=== PATIENT | female | born 1935 | race Caucasian/White ===

== ENCOUNTER 2021-09-25 11:05 | Inpatient (IN) | payer MEDICARE, MEDICAID, SELFPAY ==
[2021-09-25] VITALS (18 sets, daily range): BP systolic 80–153; BP diastolic 36–107; PULSE 89–112; RESP 14–18; TEMP 36.6–36.8; O2SAT 92–99
--- NOTE | ~2021-09-25 | XR_ITS ---
XR hip RT 2V w AP pelvis DATE: 09/25/2021 12:30 INDICATION: Injury TECHNIQUE: AP pelvis. AP and cross table lateral views of right hip COMPARISON: None FINDINGS: There is a comminuted intertrochanteric right hip fracture with prominent varus deformity. There is bilateral hip osteoarthritis. The pubic symphysis and sacroiliac joints are intact. IMPRESSION: Comminuted right intertrochanteric hip fracture Reviewed, dictated and finalized at location A. ET SPECIALIST
--- NOTE | ~2021-09-25 | XR_ITS ---
EXAMINATION: XR chest 1V portable DATE: 09/25/2021 15:04 INDICATION: Leukocytosis. Preop. TECHNIQUE: A single frontal view of the chest was obtained. COMPARISON: None. FINDINGS: The patient is rotated to her left. The chest demonstrates clear lungs without pneumonia, p leural effusion, or pneumothorax. The heart size is normal. A coronary stent is noted. Partially visu alized is a right elbow joint replacement. IMPRESSION: 1. No acute cardiopulmonary disease. Reviewed, dictated and finalized at location A. TIC PLANT WORKER
--- NOTE | ~2021-09-25 | US_ITS ---
EXAMINATION: US carotid duplex BI DATE: 09/26/2021 11:15 INDICATION: Carotid bruits. TECHNIQUE: Grayscale, color Doppler, and pulsed Doppler images of the cervical carotid arteries were obtained. The degree of vessel stenosis is placed in one of the following categories: normal, <50%, 5 0-69%, >=70% but less than near-occlusion, near-occlusion, or total occlusion. Note that percent sten osis relative to normal distal artery lumen diameter is indirectly measured from velocity measurement s as described by Gee, et al. Radiology 2003; 229:340-346. COMPARISON: None. FINDINGS: RIGHT: The right common carotid artery (CCA) peak systolic velocity (PSV) is 112 cm/s. The right internal ca rotid artery (ICA) PSV is 127 cm/s. The right ICA end-diastolic velocity (EDV) is 41 cm/s. The right ICA/CCA PSV ratio is 1.1. Grayscale and color Doppler images yield an estimate of <50% diameter reduc tion from plaque in the ICA. There is antegrade flow in the right vertebral artery. LEFT: The left CCA PSV is 167 cm/s. The left ICA PSV is 113 cm/s. The left ICA EDV is 31 cm/s. The left ICA /CCA PSV ratio is 0.7. Grayscale and color Doppler images yield an estimate of <50% diameter reductio n from plaque in the ICA. There is antegrade flow in the left vertebral artery. IMPRESSION: 1. <50% stenosis in the right internal carotid artery. 2. <50% stenosis in the left internal carotid artery. Reviewed, dictated and finalized at location A. RAL CAR YARD SUPERVISOR
--- NOTE | ~2021-09-25 | CT_ITS ---
EXAMINATION: CT brain wo con EXAM DATE: 09/25/2021 16:23 INDICATION: Fall, dementia. TECHNIQUE: Spiral CT of the head was performed without contrast. Axial, coronal and sagittal images were reviewed. The dose-length product (DLP) for this examination was 605.33 mGy-cm. The exposure w as tailored according to patient size, and iterative reconstruction (ASIR) was used as additional dos e reduction technique. There is no prior study for comparison. FINDINGS: Study is limited due to patient motion. There is no acute intraparenchymal hemorrhage. No evidence of intraparenchymal brain mass lesion. No evidence of acute infarction. Please note that i nitial head CT has limited sensitivity for small or acute infarctions. There is mild periventricular and subcortical hypodensity, nonspecific but probably related to small vessel ischemic disease. The re is mild prominence of the sulci and ventricles related to cerebral atrophy. There is intracrania l carotid arteriosclerosis. There are no extra-axial collections. There is no mass effect or midlin e shift. Patient has had bilateral ocular lens surgery. There is distortion to the normal spherical shape of t he right globe, likely chronic. The retina along the distorted right posterolateral aspect appears sl ightly more dense, but no masslike appearance. Recommend correlation with ophthalmological exam. Soft tissue is unremarkable. The visualized sinuses and mastoid air cells are well aerated. IMPRESSION: 1. No acute intracranial findings. 2. Chronic age related findings. 3. Flattening right globe posterior lateral aspect with mildly dense retina, no masslike thickening; Recommend correlation with ophthalmological exam. Reviewed, dictated and finalized at location B. ENT CARRIER IMPRESSION: 1. No acute intracranial findings. 2. Chronic age related findings. 3. Flattening right globe posterior lateral aspect with mildly dense retina, n o masslike thickening; Recommend correlation with ophthalmological exam.
--- NOTE | ~2021-09-25 | XR_ITS ---
EXAMINATION: XR surgery orthopedic DATE: 09/26/2021 17:17 INDICATION: Intertrochanteric nailing of a right hip fracture. TECHNIQUE: 7 fluoroscopic images of the right hip were obtained during procedure performed by Dr. Haley khan. Radiologist was not present for the imaging or procedure. The amount of fluoroscopy time used d uring this procedure was 3.0 minutes. COMPARISON: 09/25/2021 FINDINGS: Continuing Education Specialist image demonstrates a comminuted intratrochanteric fracture of the proximal right femur with gorge roximately 3 cm posterior displacement of the main distal fragment relative to the femoral head and n elsi fragment. Subsequent images demonstrate reduction and internal fixation of the fracture with an a ntegrade intramedullary maximilian, femoral neck dynamic compression screw and distal interlocking screw fix ation. Alignment post fixation appears near-anatomic aside from a couple centimeter persistent supero medial retraction of the lesser trochanteric fragment which remains unfixed. Mild right hip osteoarth ritis. IMPRESSION: 1. Near-anatomic alignment post reduction and internal fixation of a comminuted intratrochanteric fra cture of the proximal right femur. See procedure note for further detail. Reviewed, dictated and finalized at location A. AL MEDIA MANAGER IMPRESSION: 1. Near-anatomic alignment post reduction and internal fixation of a comminuted intratrochanteric fracture of the proximal right femur. See procedure note for further detail.
--- NOTE | ~2021-09-25 | CT_ITS ---
EXAMINATION: CT brain wo con DATE: 09/28/2021 14:00 INDICATION: Headache. Recent fall. TECHNIQUE: Computed tomography (CT) of the head was performed without intravenous contrast. The mA wa s adjusted according to patient size. Iterative reconstruction technique was employed. The dose-lengt h product was 529.67 mGy-cm. COMPARISON: Head CT 09/25/2021 FINDINGS: There are scattered areas of low attenuation in the cerebral white matter, which is within normal limits for the patient's age. There is no intracranial hemorrhage, acute infarction, or abnor mal intracranial mass lesion. The ventricles are normal in size. There is mild mucosal thickening in the ethmoid sinuses. There are likely changes of ocular lens replacement surgeries. Again seen is ant eroposterior elongation of right ocular globe with right posterolateral flattening of the sclera. The mastoid air cells are normal. IMPRESSION: 1. Normal aging brain. Reviewed, dictated and finalized at location A. GER RESOURCE IMPRESSION: 1. Normal aging brain.
[2021-09-25 14:12] LABS: Basophils Percent Auto 0.3 % (0.2-1.2); Hematocrit 29.7 % (37.0-47.0); Hemoglobin 9.8 g/dL (12.0-15.0); Immature Granulocyte Absolute 0.07 K/mm3 (0.00-0.031); Immature Granulocyte Percent A 0.5 % (0-0.5); Lymphocytes Absolute Auto 0.96 K/mm3 (0.9-3.2); Mean Corpuscular Hemoglobin 33.6 pg (26-34); Mean Corpuscular Volume 101.7 fl (80-100); Mean Platelet Volume 9.2 fl (7.4-10.4); Monocytes Absolute Auto 0.9 K/mm3 (0.1-0.6); Monocytes Percent Auto 6.8 % (2.6-8.5); Neutrophils Absolute Auto 11.8 K/mm3 (1.3-6.7); Neutrophils Percent Auto 85.4 % (45.5-73.1); Platelet Count Result 277 k/mm3 (150-375); Red Blood Count 2.92 M/mm3 (4.2-5.4); Red Cell Distribution Width 13.4 % (11.5-14.5); White Blood Count 13.8 K/mm3 (4.5-10.0)
[2021-09-25 14:22] LABS: INR 1.1; Prothrombin Time 13.9 Seconds (11.1-14.7)
[2021-09-25 14:25] LABS: Anion Gap 10 mmol/L (8-16); Blood Urea Nitrogen 19 mg/dL (7-17); Calcium 9.2 mg/dL (8.4-10.2); Carbon Dioxide 20 mmol/L (22-30); Chloride 108 mmol/L (98-107); Estimated Glomerular Filt Rate 47; Glucose 127 mg/dL (65-110); Potassium 4.6 mmol/L (3.4-5.0); Sodium 138 mmol/L (137-145)
[2021-09-25 14:36] LABS: Troponin I < 0.012 ng/mL (0.000-0.034)
--- NOTE | 2021-09-25 14:47 | ECG_ITS ---
Measurements Intervals [place] Rate: 103 P: 82 AL: 187 QRS: 7 QRSD: 115 T: 129 QT: 372 QTc: 489 Interpretive Statements SINUS TACHYCARDIA LEFT BUNDLE BRANCH BLOCK BASELINE ARTIFACT- I, II, III, AVR, AVL, V1 ABNORMAL ECG Electronically Signed On 09-25-2021 16:31:57 EXPANDED FUNCTION DENTAL ASSISTANT by Zack Tang D.O.
[2021-09-25 14:49] LABS: Add Urine Microscopic? YES; Appearance Urine Cloudy (Clear); Bilirubin Urine Negative (Negative); Blood Urine Negative (Negative); Color Urine Yellow (Yellow); Glucose Urine UA Negative (Negative); Ketones Urine Negative (Negative); Leukocyte Esterase Ur Negative LEU/UL (Negative); Mucus Urine Rare /lpf; Nitrate Urine Negative (Negative); Protein Urine 1+ mg/dL (Negative); Specific Grav Ur 1.027 (1.001-1.035); Squamous Epithelial Cell Urine Few /hpf (Few); Urobilinogen Urine Negative mg/dL (<2.0); WBC Urine 0-3 /hpf
[2021-09-25] MEDS: ONDANSETRON INJ 4 MG/2 ML VIAL IV PUSH (15:19)
[2021-09-25] MEDS: LACTATED RINGERS 1,000 ML 250 ML (15:19)
--- NOTE | 2021-09-25 15:27 | ED.FALL ---
HPI - Fall General Chief Complaint: Fall Stated Complaint: fall Time Seen by Provider: 09/25/21 11:34 Source: patient and family Limitations: clinical condition and dementia History of Present Illness HPI Narrative: 86-year-old female Here via EMS accompanied by her daughter Daughter says he just returned from a road trip, and after they got home the patient tripped over a small riser that she was not used to seeing when she tried to go to the bathroom without asking for assistance and fell and injured her right hip Unable to bear weight on the injured extremity They do not think that she hit her head and she did not lose consciousness and she has no other complaints of injury She was not complaining of feeling poorly before falling and there were no symptoms that led to the fall according to the daughter Patient is mostly fairly healthy but does have a history of dementia Related Data Home Medications Medication Instructions Recorded Confirmed buspirone mg 09/25/21 donepezil mg 09/25/21 levothyroxine 09/25/21 lisinopril 09/25/21 olanzapine mg 09/25/21 paroxetine HCl mg PO 09/25/21 Allergies Allergy/AdvReac Type Severity Reaction Status Date / Time No Known Allergies Allergy Verified 09/25/21 12:46 Review of Systems Review of Systems: All systems reviewed & are unremarkable except as noted in HPI and below Constitutional: Constitutional: Reports no additional constitutional complaints, Denies chills, Reports fatigue, Denies fever(s), Denies headache(s) and Reports weakness Eyes: Eyes: Reports no additional eye complaints and Denies change in vision ENT: Denies headache(s) and Denies sore throat Cardiovascular: Cardiovascular: Denies chest pain and Denies dyspnea Respiratory: Respiratory: Denies cough and Denies dyspnea Gastrointestinal: Gastrointestinal: Denies abdominal pain, Denies diarrhea, Reports nausea and Denies vomiting Genitourinary: Genitourinary: Denies urinary frequency and Denies dysuria Musculoskeletal: Musculoskeletal: Reports back pain, Denies deformity, Reports arthralgias, Reports joint swelling and Denies numbness Integumentary/Breasts: Skin/Breast: Denies rash and Denies wounds Neurologic: Reports confusion, Denies headache(s), Denies focal weakness and Denies numbness Psychiatric: Psychiatric: Reports no additional psychiatric complaints Endocrine: Endocrine: Reports no additional endocrine complaints Hematologic/Lymphatic: Hematologic/Lymphatic: Reports no additional hematologic/lymphatic complaints Allergic/Immunologic: Allergic/Immunologic: Reports no additional allergic/immunologic complaints Exam Const: General: cooperative and alert Nutritional Appearance: thin Other: Frail, elderly HENMT: Head: normal to inspection, normocephalic, atraumatic, no contusions, no hematomas and no lacerations Ears: external ears normal General nose exam: no epistaxis Eyes: Conjunctivae: conjunctivae normal EOM: EOMs intact bilaterally Neck: Neck: normal visual inspection, supple and no JVD Other: Nontender Chest: Chest palpation & inspection: no tenderness Resp: Effort & Inspection: normal respiratory effort and not labored Auscultation: not clear to auscultation bilaterally, no rales, no rhonchi, no wheezes and other (BS =) Cardio: Rate: regular rate Rhythm: regular rhythm Heart sounds: no murmurs GI: GI Palp: Yes Soft to palpation and No Tenderness to palpation present (GI) Other: Soft, nontender Skin: General skin exam: normal color and no rashes or lesions noted Neuro: General: moves all extremities Speech: normal speech Extrem: Other: Right leg is shortened but not rotated, hip is painful with palpation, sensation and pulses are normal in the foot Course Course Emergency Course: Discussed with Dr. Mcneal who will take care of the hip and hospitalist for admission Vital Signs Vital signs: Vital Signs Temperature 36.6 C 09/25/21 11:10 Pulse Rat
--- NOTE | 2021-09-25 15:31 | PC.NURSE ---
Addendum entered by Juancarlos Jorgensen RN 09/25/21 16:16: Medications that the daughter gave were pt's prescriptions for olanzapine, paroxetine, buspirone, and lisinopril. Original Note: Pt taking home medications as prescribed per jose l Buitrago. Only alloted small dose of water po.
[2021-09-25] MEDS: MORPHINE SULFATE (*CRX) 2 MG/ML INJ (16:15)
--- NOTE | 2021-09-25 16:15 | PC.NURSE ---
Pt returns to radiology for CT films.
[2021-09-25 16:33] LABS: Iron 24 ug/dL (37-170)
[2021-09-25 16:42] LABS: Percent Iron Saturation 6 % (20-50)
--- NOTE | 2021-09-25 16:45 | PM.IMHP ---
H&P: HPI History of Present Illness Date/Time: 09/25/21 16:45 Chief Complaint: Right hip pain after fall. Narrative: This is a pleasant 86-year-old female with history of coronary artery disease status post CABG many years ago, hypertension, anxiety, hypothyroidism, and dementia who presented to the emergency department earlier today via private vehicle from home for evaluation of right hip pain after fall. The patient received morphine not long prior to my arrival to the room and she is somewhat somnolent and is not able to provide a good history, probably in some part due to her dementia. As such, some of the following information is obtained via a review of her electronic medical records as well as discussions with her daughter at bedside, with the patient's permission. Within the last 6 months or so the patient moved in with her daughter Rama due to her dementia and increasing need for help at home. They have been getting around quite well and in fact they were returning from a road trip to [place] where they visited family members, and they stopped last evening and stayed at an [employer]BnB. Around 03:00 the patient woke up to use the restroom and unfortunately she forgot to call out for her daughter to assist her and she fell after missing a step, landing on her right hip. She was unable to get herself up due to pain in the right hip but daughter managed to get her into bed and the patient slept for a few hours after taking extra strength Tylenol. Early this morning, with the assistance of the owners of the home, the patient was transferred into the car and her daughter drove her immediately to the ER where she was indeed found to have a right hip fracture. She thinks that she bumped the right side of her head but no contusion was noted on exam. There was no head trauma or loss of consciousness. She denies antecedent symptoms prior to the fall and she reports that the fall was purely mechanical, having missed the step. She denies other injuries in the fall. Review of Systems Review of Systems: Twelve systems were reviewed. A bit limited given her short-term memory loss. No eye pain or change in vision. She denies fever, chills, and sweats. No recent cold or flu symptoms. No sick contacts. She has not had chest pain, palpitations, pleuritic pain, or shortness of breath. No orthopnea, PND, or lower extremity edema. She has not had nausea, vomiting, diarrhea, or dysuria. Except as documented, all other systems were reviewed and are negative. [facility] Past Medical History Medical History (Updated 09/25/21 @ 20:02 by Louann Clarke PA-C) Anxiety Coronary artery disease Status post stent x1 many years ago. COVID-19 (07/2020) Dementia Diverticulitis Hypertension Hypothyroidism Surgical History Surgical History (Updated 09/25/21 @ 19:56 by Louann Clarke PA-C) History of cardiac catheterization History of heart artery stent History of hysterectomy History of partial colectomy Related to diverticulitis. Family History Family History (Updated 09/25/21 @ 19:57 by Louann Clarke PA-C) Mother Breast cancer Father Heart disease Hypertension Congestive heart failure Social History Social History (Updated 09/25/21 @ 19:58 by Louann Clarke PA-C) Social History: The patient lives with her daughter Rama in [place]. She is originally from [place]. 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 She has 3 children, 2 sons and 1 daughter. Lifelong nonsmoker. No alcohol or illicit substance abuse. Her daughter Rama Sood is her healthcare power of environmental attorney. Code status: Full code. Meds Home Medications and Allergies Home Medications Medication Instructions Recorded Confirmed Type buspirone mg 09/25/21 History donepezil mg 09/25/21 History levothyroxine 09/25/21 History lisinopril 09/25/21 History olanzapine mg 09/25/21
--- NOTE | 2021-09-25 17:04 | PC.NURSE ---
Preparing to take patient to the floor. DELMIS Lew exam continues and wishes to wait at this time.
[2021-09-25 17:33] LABS: Vitamin B12 > 1000.0 pg/mL (239-931)
[2021-09-25] MEDS: LACTATED RINGERS 1,000 ML 75 ML IV CONT (18:39)
--- NOTE | 2021-09-25 18:49 | ADMGEN ---
This patient, Liz Smith, was admitted to Medical Room 341-01. Patient/family oriented to hospital policies and general routines including ID bracelet, bed and alarms, visiting hours, pain management, procedures, bathroom and other care routines, personal items, smoking policy, room service/diet, and visiting hours. Information on how to activate the Rapid Response Team has been discussed. Patient/Family are encouraged to report perceived risks to care and to ask questions if they do not understand what they are told or what they should do.
[2021-09-25] MEDS: MORPHINE SULFATE (*CRX) 4 MG/ML INJ 2 MG IV PUSH (23:45)
[2021-09-26] VITALS (18 sets, daily range): BP systolic 105–133; BP diastolic 49–68; PULSE 79–104; RESP 9–20; TEMP 36.2–37.5; O2SAT 92–100
[2021-09-26] MEDS: HYDROcodone/acetaminophen (*CRX) 5-325 MG TABLET 1 TAB PO (03:27)
[2021-09-26 06:33] LABS: Alanine Aminotransferase 31 U/L (4-35); Albumin Level 3.2 g/dL (3.5-5.1); Alkaline Phosphatase 70 U/L (38-126); Anion Gap 4 mmol/L (8-16); Aspartate Amino Transferase 67 U/L (14-36); Bilirubin,Total 0.4 mg/dL (0.2-1.3); Blood Urea Nitrogen 22 mg/dL (7-17); Calcium 8.3 mg/dL (8.4-10.2); Carbon Dioxide 25 mmol/L (22-30); Chloride 103 mmol/L (98-107); Estimated Glomerular Filt Rate 47; Glucose 112 mg/dL (65-110); Magnesium 1.8 mg/dL (1.6-2.3); Potassium 4.3 mmol/L (3.4-5.0); Sodium 132 mmol/L (137-145)
[2021-09-26 06:40] LABS: Hematocrit 24.8 % (37.0-47.0); Mean Corpuscular HGB Conc 32.3 g/dl (32-36); Mean Corpuscular Hemoglobin 33.6 pg (26-34); Mean Corpuscular Volume 104.2 fl (80-100); Mean Platelet Volume 9.3 fl (7.4-10.4); Platelet Count Result 227 k/mm3 (150-375); Red Blood Count 2.38 M/mm3 (4.2-5.4); Red Cell Distribution Width 13.7 % (11.5-14.5); White Blood Count 10.5 K/mm3 (4.5-10.0)
--- NOTE | 2021-09-26 06:45 | PM.PNORT ---
Progress Note: A&P Additional Plan 86-year-old female who has a comminuted right intertrochanteric hip fracture. This will need to be fixed surgically with ORIF. Dr. Mcneal discussed this with the patient's daughter who was here this morning. She does have significant dementia and therefore she will need to be bed to chair for at least the 1st 6 weeks postoperatively. She will need to be transferred to rehab facility postoperatively once she is stable. She does have significant cardiac history we will consult Cardiology this morning for evaluation before surgery. Surgical procedure as well as the risks and complications were discussed with her daughter in detail. Given her dementia there is possibility that this will worsen with surgery and this was discussed as well. If she is cleared from cardiology standpoint we will plan to proceed to the OR later today. <DELMIS Ojeda - Last Filed: 09/26/21 06:49> Subjective Subjective Date/Time Seen: 09/26/21 06:45 86-year-old female who had fall yesterday. She sustained a comminuted right intertrochanteric hip fracture. She was brought to the emergency room from an ambulance. She has recently moved to this area due to worsening of her dementia and wanting to live with her daughter who lives in this area. They were on a trip and on the way back she got up in the night lost her balance falling hard on the right hip. Again she was brought to the emergency following this fall. X-ray showed a comminuted right intertrochanteric hip fracture. Was admitted for surgical fixation fracture. <DELMIS Ojeda - Last Filed: 09/26/21 06:49> Exam Narrative: 86-year-old female she has moderate dementia. She does have a 2+ dorsalis pedis pulse in her right foot. Right leg is slightly externally rotated. She has severe pain with any motion of the right hip. There is no effusion in the right knee. She is able wiggle her toes. <DELMIS Ojeda - Last Filed: 09/26/21 06:49> Objective Data Vital Signs Vital Signs: Vital Signs - 24 hr 09/25/21 11:10 09/25/21 12:45 09/25/21 13:02 Temperature 36.6 C Pulse Rate 112 H 99 Respiratory Rate 18 18 Blood Pressure 153/70 H 99/42 L 91/56 L Pulse Oximetry 99 95 97 09/25/21 13:16 09/25/21 13:31 09/25/21 13:46 Temperature Pulse Rate Respiratory Rate Blood Pressure 99/45 L 105/47 L 97/46 L Pulse Oximetry 97 95 96 09/25/21 14:01 09/25/21 14:15 09/25/21 14:16 Temperature Pulse Rate Respiratory Rate Blood Pressure 88/36 L 137/107 H Pulse Oximetry 97 98 09/25/21 14:31 09/25/21 14:45 09/25/21 15:01 Temperature Pulse Rate Respiratory Rate Blood Pressure 80/68 L 98/61 L 112/45 L Pulse Oximetry 96 96 96 09/25/21 15:31 09/25/21 16:51 09/25/21 17:01 Temperature Pulse Rate 99 98 Respiratory Rate 14 18 Blood Pressure 93/44 L 108/46 L 108/46 L Pulse Oximetry 94 92 93 09/25/21 17:56 09/25/21 19:24 09/25/21 20:00 Temperature 36.8 C 36.6 C Pulse Rate 100 89 89 Respiratory Rate 16 16 16 Blood Pressure 105/51 L 120/64 Pulse Oximetry 98 93 93 09/26/21 03:18 Temperature 36.6 C Pulse Rate 81 Respiratory Rate 18 Blood Pressure 108/61 Pulse Oximetry 96 <DELMIS Ojeda - Last Filed: 09/26/21 06:49> Intake/Output Intake/Output: Intake & Output 09/23/21 09/24/21 09/25/21 09/26/21 23:59 23:59 23:59 23:59 Intake Total 500 Output Total 450 Balance 500 -450 <DELMIS Ojeda - Last Filed: 09/26/21 06:49> Meds/Results Medications: Active Medications Generic Name Dose Route Start Last Admin Trade Name Freq PRN Reason Stop Dose Admin Lactated Ringer's 1,000 mls @ 75 mls/hr 09/25/21 15:40 09/25/21 18:39 Lr - Lactated Ringers Iv IV CONT 09/26/21 07:00 75 mls/hr .[id number] ASHLEY Administration Cefazolin Sodium 2 gm in 50 mls @ 100 mls/hr 09/26/21 15:29 Ancef 2 Gm/D5w 50 Ml IVPB 09/26/21 15:58 ONCE ONE Acetaminoph
--- NOTE | 2021-09-26 08:15 | PM.IMPN ---
Progress Note: A&P Assessment and Plan (1) Closed fracture of right hip: Code(s): S72.001A - Fracture of unspecified part of neck of right femur, initial encounter for closed fracture Status: Acute Assessment and Plan: mechanical fracture from ground level Hip/Pel xray found comminuted right intratrochanteric hip fracture NPO after midnight for surgical services Ortho consulted thank you LR at 50ml/hr Acetamenophen IV scheduled Q6hr, Morphine, and oxycodone PRN Bedrest for now Dr. Finn to manage post-op care DVT determined by ortho (2) Fall from ground level: Code(s): W18.30XA - Fall on same level, unspecified, initial encounter Status: Acute Assessment and Plan: As above. (3) Macrocytic anemia: Code(s): D53.9 - Nutritional anemia, unspecified Status: Acute Assessment and Plan: H/H 8.0/24.8, MCV 104.2 Anemia labs: Iron 24, TIBC 390, % Sat 6, B12 >1000, TSH 8.780 On B12 and folic acid at home Start patient on PO iron: Ferrous sulfate 324mg PO BID with food Trend labs Transfuse if needed (4) Renal insufficiency: Code(s): N28.9 - Disorder of kidney and ureter, unspecified Status: Acute Assessment and Plan: No baseline Current BUN/Cr 22/1.10 Trend labs 1L LR overnight LR at 50ml/hr for hydration Could be an aspect of dehydration, or could be chronic Trend labs (5) Leukocytosis: Code(s): D72.829 - Elevated white blood cell count, unspecified Status: Acute Assessment and Plan: WBC 13.8 upon admission Currently trending down 10.5 today Probably stress response Trend labs (6) Hypertension: Code(s): I10 - Essential (primary) hypertension Status: Acute Assessment and Plan: Current BP 109/49 Restarted lisinopril 5mg PO daily trend BP adjust medications as needed (7) Hypothyroidism: Code(s): E03.9 - Hypothyroidism, unspecified Status: Chronic Assessment and Plan: Continue levothyroxine 50 mcg PO daily TSH 8.780, T4 pending (8) Coronary artery disease: Code(s): I25.10 - Atherosclerotic heart disease of [place] coronary artery without angina pectoris Status: Acute Assessment and Plan: Probably not relevant at this time Aspirin on hold for surgical procedure Status post stent many years ago No complaints of chest pain or shortness of breath EKG shows left bundle branch block which is presumably an old finding Troponin is undetectable. (9) Dementia: Code(s): F03.90 - Unspecified dementia without behavioral disturbance Status: Acute Assessment and Plan: Continue donepezil PO HS and olanzapine 2.5 TID Monitor for mood changes (10) Anxiety: Code(s): F41.9 - Anxiety disorder, unspecified Status: Acute Assessment and Plan: Continue buspirone and paroxetine. Time Spent With Patient Time with patient: Greater than 35 minutes Subjective Date/time seen: 09/26/21 08:15 Interval history: Date/Time: 09/25/21 16:45 Narrative: This is a pleasant 86-year-old female with history of coronary artery disease status post CABG many years ago, hypertension, anxiety, hypothyroidism, and dementia who presented to the emergency department earlier today via private vehicle from home for evaluation of right hip pain after fall. The patient received morphine not long prior to my arrival to the room and she is somewhat somnolent and is not able to provide a good history, probably in some part due to her dementia. As such, some of the following information is obtained via a review of her electronic medical records as well as discussions with her daughter at bedside, with the patient's permission. Within the last 6 months or so the patient moved in with her daughter Rama due to her dementia and increasing need for help at home. They have been getting around q
--- NOTE | 2021-09-26 08:15 | P.PNIM_ITS ---
Progress Note: A&P Assessment and Plan (1) Closed fracture of right hip: Code(s): S72.001A - Fracture of unspecified part of neck of right femur, initial encounter for closed fracture Status: Acute Assessment and Plan: * mechanical fracture from ground level * Hip/Pel xray found comminuted right intratrochanteric hip fracture * NPO after midnight for surgical services * Ortho consulted thank you * LR at 50ml/hr * Acetamenophen IV scheduled Q6hr, Morphine, and oxycodone PRN * Bedrest for now * Dr. Finn to manage post-op care * DVT determined by ortho (2) Fall from ground level: Code(s): W18.30XA - Fall on same level, unspecified, initial encounter Status: Acute Assessment and Plan: * As above. (3) Macrocytic anemia: Code(s): D53.9 - Nutritional anemia, unspecified Status: Acute Assessment and Plan: * H/H 8.0/24.8, MCV 104.2 * Anemia labs: Iron 24, TIBC 390, % Sat 6, B12 >1000, TSH 8.780 * On B12 and folic acid at home * Start patient on PO iron: Ferrous sulfate 324mg PO BID with food * Trend labs * Transfuse if needed (4) Renal insufficiency: Code(s): N28.9 - Disorder of kidney and ureter, unspecified Status: Acute Assessment and Plan: * No baseline * Current BUN/Cr 22/1.10 * Trend labs * 1L LR overnight * LR at 50ml/hr for hydration * Could be an aspect of dehydration, or could be chronic * Trend labs (5) Leukocytosis: Code(s): D72.829 - Elevated white blood cell count, unspecified Status: Acute Assessment and Plan: * WBC 13.8 upon admission * Currently trending down 10.5 today * Probably stress response * Trend labs (6) Hypertension: Code(s): I10 - Essential (primary) hypertension Status: Acute Assessment and Plan: * Current BP 109/49 * Restarted lisinopril 5mg PO daily * trend BP * adjust medications as needed (7) Hypothyroidism: Code(s): E03.9 - Hypothyroidism, unspecified Status: Chronic Assessment and Plan: * Continue levothyroxine 50 mcg PO daily * TSH 8.780, T4 pending (8) Coronary artery disease: Code(s): I25.10 - Atherosclerotic heart disease of [place] coronary artery without angina pectoris Status: Acute Assessment and Plan: * Probably not relevant at this time * Aspirin on hold for surgical procedure * Status post stent many years ago * No complaints of chest pain or shortness of breath * EKG shows left bundle branch block which is presumably an old finding * Troponin is undetectable. (9) Dementia: Code(s): F03.90 - Unspecified dementia without behavioral disturbance Status: Acute Assessment and Plan: * Continue donepezil PO HS and olanzapine 2.5 TID * Monitor for mood changes (10) Anxiety: Code(s): F41.9 - Anxiety disorder, unspecified Status: Acute Assessment and Plan: * Continue buspirone and paroxetine. Time Spent With Patient Time with patient: Greater than 35 minutes Subjective Date/time seen: 09/26/21 08:15 Interval history: Date/Time: 09/25/21 16:45 Narrative: This is a pleasant 86-year-old female with history of coronary artery disease status post CABG many years ago, hypertension, anxiety, hypothyroidism, and dementia who presented to the emergency department earlier today via private vehicle from home for evaluati
[2021-09-26] MEDS: LACTATED RINGERS 1,000 ML 75 ML IV CONT (08:29)
[2021-09-26] MEDS: MORPHINE SULFATE (*CRX) 4 MG/ML INJ 2 MG IV PUSH (08:29)
[2021-09-26] MEDS: ONDANSETRON INJ 4 MG/2 ML VIAL IV PUSH (08:35)
[2021-09-26 08:53] LABS: Vitamin D 25 Hydroxy 44.6 ng/mL
[2021-09-26] MEDS: busPIRone HCL 10 MG TABLET PO (09:54)
[2021-09-26] MEDS: lisinopriL 5 MG TABLET PO (09:54)
[2021-09-26] MEDS: PARoxetine 10 MG TABLET PO (09:54)
[2021-09-26] MEDS: OLANZapine 2.5 MG TABLET PO (09:54)
--- NOTE | 2021-09-26 10:39 | ECHO_ITS ---
Patient Info Name: Liz Smith Age: 86 years : 1935 Gender: Female Ht: 59 in Wt: 130 lbs BSA: 1.58 m2 HR: 95 bpm BP: 109 / 49 mmHg Heart Rhythm: Sinus Rhythm Exam Date: 09/26/2021 11:30 AM Exam Location: [facility] Patient Status: Inpatient Admit Date: 09/25/2021 Staff Ordering Physician: Adonis Bautista MD Antenna Specialist: Jyothi Cardona RDCS Attending Provider: Jose Hoyos Referring Physician: Michele CASTILLO; Exam Type: CA echo dop color flow w con Study Info Indications - CAD, PRE-OP Complete two-dimensional, color flow and Doppler transthoracic echocardiogram is performed with contrast to opacify the left ventricle and to improve the deliniation of the left ventricle endocardial borders. Contrast/Agitated Saline Contrast/Ag. Saline: Definity Amount: 1.00 ml Administered By: Eli Small RN Senior Hydrogeologist Services Summary 1. Left ventricular chamber dimension is normal. 2. Left ventricular systolic function is normal, estimated at 60-65%. 3. There is mildly increased left ventricular wall thickness. 4. The left ventricular diastolic function is grade I diastolic dysfunction. 5. Left atrial chamber dimension is mildly enlarged. 6. There is mild mitral valve regurgitation. 7. The mitral valve annulus is moderately calcified. 8. Mild pulmonary hypertension, estimated pulmonary arterial systolic pressure is 39 mmHg. 9. There is mild tricuspid valve regurgitation. Left Ventricle Left ventricular chamber dimension is normal. Left ventricular systolic function is normal, estimated at 60-65%. There is mildly increased left ventricular wall thickness. The left ventricular diastolic function is grade I diastolic dysfunction. Right Ventricle Right ventricular chamber dimension is normal. Right ventricular systolic function is normal. Left Atria Left atrial chamber dimension is mildly enlarged. Right Atria Right atrial chamber dimension is normal. Atrial Septum Intact interatrial septum visualized by color flow imaging. Aortic Valve The aortic valve is trileaflet. There is mild aortic valve sclerosis. There is no aortic valve stenosis. There is trace aortic valve regurgitation. Pulmonic Valve The pulmonic valve is normal. There is no pulmonic valve stenosis. There is trace pulmonic regurgitation. Mitral Valve There is no mitral valve stenosis. There is mild mitral valve regurgitation. The mitral valve annulus is moderately calcified. Tricuspid Valve The tricuspid valve leaflets are normal. There is no significant tricuspid valve stenosis. There is mild tricuspid valve regurgitation. Mild pulmonary hypertension, estimated pulmonary arterial systolic pressure is 39 mmHg. Pericardium/Pleural The pericardium appears normal. There is no pericardial effusion. Inferior Vena Cava Normal inferior vena cava with >50% collapse upon inspiration consistent with normal right atrial pressure, 10 mmHg. Aorta The aortic root size at the sinus of Valsalva is normal. Left Ventricular Outflow Tract Name Value Normal LVOT 2D LVOT Diameter 1.96 cm LVOT Doppler ---
--- NOTE | 2021-09-26 10:41 | PM.CNCAR ---
Assessment and Plan Assessment and plan (1) Coronary artery disease: Code(s): I25.10 - Atherosclerotic heart disease of [place] coronary artery without angina pectoris Status: Acute Assessment and Plan: remote history of CAD resulting in a stent about 10 years ago. She does not have a CABG history. There has been no worrisome anginal symptoms recently When talking to the patient's daughter. Start aspirin 81 mg daily (2) Preop cardiovascular exam: Code(s): Z01.810 - Encounter for preprocedural cardiovascular examination Status: Acute Assessment and Plan: Patient is at moderate risk of perioperative cardiovascular complications. I do not feel that ischemic workup is needed prior to her hip surgery. I will however check a 2D echocardiogram Doppler to assess overall LV size and function. This will be ordered stat prior to surgery. Caution To avoid iatrogenic volume overload. (3) Hypertension: Code(s): I10 - Essential (primary) hypertension Status: Acute Assessment and Plan: a bit hypotensive at this point. Caution with over-sedation. continue IV fluids (4) Hypothyroidism: Code(s): E03.9 - Hypothyroidism, unspecified Status: Chronic Assessment and Plan: on replacement. Up titrate as need be. T4 level is pending (5) Closed fracture of right hip: Code(s): S72.001A - Fracture of unspecified part of neck of right femur, initial encounter for closed fracture Status: Acute Assessment and Plan: awaiting surgery this afternoon (6) Dementia: Code(s): F03.90 - Unspecified dementia without behavioral disturbance Status: Acute Assessment and Plan: Continue Aricept (7) Carotid bruit: Code(s): R09.89 - Other specified symptoms and signs involving the circulatory and respiratory systems Status: Acute Assessment and Plan: bilateral carotid ultrasound is ordered by sc History of Present Illness History of Present Illness Consult date/time: 09/26/21 10:41 Requesting physician: Jack Mcneal MD Consult reason: pre-op evaluation and Other (CAD) Reason For Visit: hip fracture Narrative: Date of service 09/26/2020 Reason for consultation: Right hip fracture, stat preoperative evaluation, CAD requesting provider: Dr. Mcneal History: Patient is 86-year-old female as history of CAD. Stent was placed about 10 years ago. There is documentation of her having a bypass surgery but she actually has no sternotomy scar and actually has not had a bypass surgery. She is currently living with her daughter. They were staying at a cottage near [facility] for couple of days when the patient fell. She broke her left hip. She was brought to this hospital to be closer to home for further workup and evaluation. She does have a history of dementia, hypertension, hypothyroidism. History is predominantly obtained by reviewing chart record and talking to her daughter. Patient has not been having any recent or new chest pain. No syncope, presyncope, shortness of breath, paroxysmal nocturnal dyspnea, orthopnea, edema palpitations. Review of Systems Review of Systems: All systems reviewed & are unremarkable except as noted in HPI and below Constitutional: Constitutional: Denies weakness Eyes: Eyes: Denies blurry vision ENT: Denies Normal hearing present Cardiovascular: Cardiovascular: Denies chest pain Respiratory: Respiratory: Denies dyspnea Gastrointestinal: Gastrointestinal: Denies abdominal pain Genitourinary: Genitourinary: Denies hematuria and Denies flank pain Musculoskeletal: Musculoskeletal: Denies back pain and Denies neck pain Integumentary/Breasts: Skin/Breast: Denies dry skin Neurologic: Denies headache(s) Psychiatric: Psychiatric: Denies anxiety and Reports confusion Endocrine: Endocrine: Denies fatigue Hematologic/Lymphatic: Hematologic/Lymphatic: Denies easy bleeding Allergic
--- NOTE | 2021-09-26 11:40 | WPDANESEPPF ---
Anes - Initial Pre Proc Eval Procedure: Operation Date: 09/26/21 15:30 Proposed Procedures p Intertrochanteric Nail Right Hip - Jack Mcneal MD Date/Time: 09/26/21 11:40 Pre Op Diagnosis: hip fracture Patient Data Age: 86 Gender: F Height: 1.5 m Weight: 59.4 kg Last Vital Signs Temp 36.6 C 09/26/21 03:18 Pulse 95 09/26/21 09:18 Resp 18 09/26/21 03:18 BP 109/49 L 09/26/21 09:18 Pulse Ox 96 09/26/21 03:18 Allergies Allergy/AdvReac Type Severity Reaction Status Date / Time No Known Allergies Allergy Verified 09/25/21 18:34 Home Medications Medication Instructions Recorded Confirmed Type Adults Multivitamin 1 tablet BYMOUTH DAILY 09/25/21 09/25/21 History alendronate-vitamin D3 50 mcg BYMOUTH DAILY 09/25/21 09/25/21 History aspirin 81 mg PO HS 09/25/21 09/25/21 History buspirone 10 mg PO TID 09/25/21 09/25/21 History diphenhydramine HCl [ZzzQuil] 25 mg PO HS PRN 09/25/21 09/25/21 History donepezil 5 mg PO HS 09/25/21 09/25/21 History levothyroxine 50 mcg PO DAILY 09/25/21 09/25/21 History lisinopril 5 mg PO DAILY 09/25/21 09/25/21 History melatonin 15 mg PO HS 09/25/21 09/25/21 History olanzapine 2.5 mg PO TID 09/25/21 09/25/21 History omega-3 fatty acids [Fish Oil] 300 mg PO DAILY 09/25/21 09/25/21 History paroxetine HCl 10 mg PO BIDWMEAL 09/25/21 09/25/21 History vitamin G28-xyelu acid 1,000 mcg BYMOUTH DAILY 09/25/21 09/25/21 History Laboratory Tests 09/25/21 09/25/21 09/25/21 14:03 14:03 14:03 WBC 13.8 K/mm3 H K/mm3 (4.5-10.0) RBC 2.92 M/mm3 L M/mm3 (4.2-5.4) Hgb 9.8 g/dL L g/dL (12.0-15.0) Hct 29.7 % L % (37.0-47.0) MCV 101.7 fl H fl (80-100) MCH 33.6 pg pg (26-34) MCHC 33.0 g/dl g/dl (32-36) RDW 13.4 % % (11.5-14.5) Plt Count 277 k/mm3 k/mm3 (150-375) MPV 9.2 fl fl (7.4-10.4) Immature Gran % (Auto) 0.5 % % (0-0.5) Neut % (Auto) 85.4 % H % (45.5-73.1) Lymph % (Auto) 7.0 % L % (18.3-44.2) [place] % (Auto) 6.8 % % (2.6-8.5) Eos % (Auto) 0.0 % % (0-4.4) Baso % (Auto) 0.3 % % (0.2-1.2) Lymph # (Auto) 0.96 K/mm3 K/mm3 (0.9-3.2) [place] # (Auto) 0.9 K/mm3 H K/mm3 (0.1-0.6) Eos # (Auto) 0.0 K/mm3 K/mm3 (0-0.3) Baso # (Auto) 0.0 K/mm3 K/mm3 (0.0-0.1) Abs Immat Gran (auto) 0.07 K/mm3 H K/mm3 (0.00-0.031) Absolute Neuts (auto) 11.8 K/mm3 H K/mm3 (1.3-6.7) Absolute Nucleated RBC 0.0 K/mm3 K/mm3 (0.0-0.012) Nucleated RBC % 0.0 % % (0.0-0.2) PT 13.9 Seconds Seconds (11.1-14.7) INR 1.1 Sodium 138 mmol/L mmol/L (137-145) Potassium 4.6 mmol/L mmol/L (3.4-5.0) Chloride 108 mmol/L H mmol/L (98-107) Carbon Dioxide 20 mmol/L L mmol/L (22-30) Anion Gap 10 mmol/L mmol/L (8-16) BUN 19 mg/dL H mg/dL (7-17) Creatinine 1.10 mg/dL H mg/dL (0.7-1.0) Estim Creat Clear Calc Not Reportable Estimated GFR 47 L (59 - ) Glucose 127 mg/dL H mg/dL (65-110) Calcium 9.2 mg/dL mg/dL (8.4-10.2) Magnesium Iron TIBC % Saturation Total Bilirubin AST ALT Alkaline Phosphatase Troponin I < 0.012 ng/mL ng/mL (0.000-0.034) Total Protein Albumin Vitamin B12 Vitamin D 25-Hydroxy TSH (Reflex) Free T4 Urine Color Urine Appearance Urine pH Ur Specific [place] Urine Protein Urine Glucose (UA) Urine Ketones Ur Blood (Man) Urine Nitrate Urine Bilirubin Urine Urobilinogen Leukocyte Mela
[2021-09-26] MEDS: SODIUM CHLORIDE 0.9% IV 250 ML 30 ML IV CONT (11:51)
[2021-09-26] MEDS: PERFLUTREN LIPID MICROSPHERES 1.5 ML VIAL DILUTED TO 10 ML TOTAL VOLUME IV PUSH (12:00)
[2021-09-26 13:17] LABS: Free T4 Free Thyroxine Reflex 0.82 ng/dL (0.78-2.19)
[2021-09-26] MEDS: LACTATED RINGERS 1,000 ML 30 ML IV CONT (15:08)
[2021-09-26] MEDS: fentaNYL CITRATE INJ (*CRX) 100 MCG/2 ML VIAL 25 MCG IV PUSH (15:08)
[2021-09-26] MEDS: TRANEXAMIC ACID 1,000MG/ISO100 1,000 MG/100 ML BAG 200 MG IVPB (15:20)
--- NOTE | 2021-09-26 15:22 | P.HPUP_ITS ---
History and Physical Update Update Date/Time: 09/26/21 15:22 History and Physical has been reviewed, including an updated exam of the patient. There are NO changes in the patient's condition. Risks of surgery including heart failure and , benefits, and alternatives have been discussed with pts daughter and questions answered. Patient/ daughter- poa agree to proceed with procedure.
[2021-09-26] MEDS: ceFAZolin 2 GM/D5W 50 ML 2 GM/50 ML BAG IVPB (15:48)
[2021-09-26] MEDS: ceFAZolin SODIUM 1 GM VIAL IRRIGATION (16:01)
[2021-09-26] MEDS: ceFAZolin SODIUM 1 GM VIAL IV PUSH (17:17)
--- NOTE | 2021-09-26 17:45 | W.PM.PROC2 ---
Procedure Note - Detailed Date of Procedure 09/26/21 Pre-op Diagnosis Severely comminuted 4 part right intertrochanteric hip fracture with severe displacement Post-op Diagnosis same Procedure Performed Open reduction internal fixation right intertrochanteric hip fracture with Affiixus trochanteric nail device Surgeon Jack Mcneal MD [place] [employer] [place] Anesthesia general Description of Procedure Patient was brought to the operating room and general anesthesia was administered. She was carefully transferred to the fracture table. The right foot was covered with soft roll wrapped with [place] placed in the traction boot with additional padding the left hip flexed abducted out of the way. Longitudinal traction was applied the right leg. The AP view showed continued severe displacement and distraction the traction did not correct. Lateral view showed that there was 100% displacement of the head and neck fragment anterior to the shaft fragment under traction. With traction off the proximal fragment tended to rotate 90? and flex showing us a lateral view of the neck while we were obtaining an AP view of the hip.. We could see that closed reduction would not be possible. The right hip was prepped draped usual fashion. The leg was placed in neutral alignment the kneecap pointing superiorly. Prior to moving her to the fracture table I carefully scrubbed the lateral aspect of the right hip and thigh with the chlorhexidine cloth. She received 2 g Ancef weight based vancomycin and 1 g of tranexamic acid preoperatively. A 2-1/2 inch longitudinal incision was made proximal to greater trochanter. A guide maximilian was inserted through the fascia into the zone of comminution and down the canal. The canal was reamed to 11 mm which obtained significant chatter the proximal femoral portion reamed to 16 mm. The 130 degree 9 mm Affixus nail was inserted and we then made a 3 in lateral incision the distal portion of the incision position to except the sleeves for the sliding hip screw this was extended more proximal to allow for open reduction of the displaced femoral neck. The fascia was incised for a distance of 2-1/2 inches and a small [place] elevator passed underneath the vastus lateralis and I could place my finger anterior to the shaft until I could feel the anteriorly displaced femoral neck fragment it with my finger I went over the anterior surface of the femoral neck and then carefully inserted a medium bone hook which took the proximal fragment out of flexion. Of course the fracture tended to distract both longitudinally and medial to lateral. The un scrubbed patrol captain was utilized to apply gentle pressure to the contralateral left hip to reduce the varus distraction force throughout the reduction maneuver and pulling the inferior spike of the neck laterally while we pushed in a medial direction on the jig to push the maximilian and the shaft medially we achieved a satisfactory reduction. We then worked hard to insert a guide pin in the optimal position. Her anatomy was very small at 4 ft 11 in in height and we could see that it would be impossible to have the main sliding hip screw inferior enough on the femoral neck that we could place a more superior anti rotation screw so we were content to place the lag screw guidewire in the perfect center of the femoral head on the AP view. On the lateral view we accepted a few mm posterior from perfect center to avoid skiving off the anterior femoral neck with the drill. Once we had this in position while holding the mediolateral compression and the bone hook, we were able to insert the anti rotation pin that fortunately skived off the inferior and ostial superior surface of the superior femoral neck just enough to gain purchase and help control rotation during drilling for the lag screw which was carried out and we inserted an 85 mm lag screw to about 7 mm from subchondral bone and obtained excellent purchase. It was rotated properly and th
[2021-09-26 18:57] LABS: Hematocrit 30.1 % (37.0-47.0); Hemoglobin 9.4 g/dL (12.0-15.0)
[2021-09-26] MEDS: FAMOTIDINE 20 MG TABLET PO (20:18)
[2021-09-26] MEDS: ASPIRIN 81 MG CHEWABLE TABLET PO (20:19)
[2021-09-26] MEDS: DONEPEZIL HCL 5 MG TABLET PO (20:19)
[2021-09-26] MEDS: SODIUM CHLORIDE 0.9% IV 1,000 ML 125 ML IV CONT (20:21)
[2021-09-26 21:29] LABS: Total Triiodothyronine (T3) 0.69 NG/ML (0.97-1.69)
[2021-09-26] MEDS: ACETAMINOPHEN 325 MG TABLET 650 MG PO (23:09)
[2021-09-27] VITALS (11 sets, daily range): BP systolic 91–149; BP diastolic 42–58; PULSE 73–129; RESP 16–18; TEMP 35.8–36.8; O2SAT 95–97
[2021-09-27] MEDS: oxyCODONE HCL (*CRX) 2.5 MG TAB IR PO ×3 (02:48→17:55)
[2021-09-27 05:47] LABS: Basophils Percent Auto 0.3 % (0.2-1.2); Eosinophils Absolute Auto 0.1 K/mm3 (0-0.3); Eosinophils Percent Auto 0.8 % (0-4.4); Hematocrit 26.7 % (37.0-47.0); Hemoglobin 8.8 g/dL (12.0-15.0); Immature Granulocyte Absolute 0.05 K/mm3 (0.00-0.031); Immature Granulocyte Percent A 0.6 % (0-0.5); Lymphocytes Absolute Auto 1.11 K/mm3 (0.9-3.2); Lymphocytes Percent Auto 12.3 % (18.3-44.2); Mean Corpuscular Hemoglobin 33.1 pg (26-34); Mean Corpuscular Volume 100.4 fl (80-100); Mean Platelet Volume 9.2 fl (7.4-10.4); Monocytes Absolute Auto 0.9 K/mm3 (0.1-0.6); Monocytes Percent Auto 9.6 % (2.6-8.5); Neutrophils Absolute Auto 6.9 K/mm3 (1.3-6.7); Neutrophils Percent Auto 76.4 % (45.5-73.1); Platelet Count Result 181 k/mm3 (150-375); Red Blood Count 2.66 M/mm3 (4.2-5.4); Red Cell Distribution Width 15.4 % (11.5-14.5)
[2021-09-27] MEDS: SODIUM CHLORIDE 0.9% IV 1,000 ML 125 ML IV CONT (06:11)
[2021-09-27] MEDS: ACETAMINOPHEN 325 MG TABLET 650 MG PO ×4 (06:11→23:20)
[2021-09-27] MEDS: LEVOTHYROXINE SODIUM 50 MCG TABLET PO (06:12)
[2021-09-27 06:18] LABS: Alanine Aminotransferase 31 U/L (4-35); Albumin Level 3.1 g/dL (3.5-5.1); Alkaline Phosphatase 66 U/L (38-126); Anion Gap 7 mmol/L (8-16); Aspartate Amino Transferase 87 U/L (14-36); Bilirubin,Total 0.5 mg/dL (0.2-1.3); Blood Urea Nitrogen 14 mg/dL (7-17); Calcium 7.7 mg/dL (8.4-10.2); Carbon Dioxide 23 mmol/L (22-30); Chloride 103 mmol/L (98-107); Estimated Glomerular Filt Rate 60; Glucose 103 mg/dL (65-110); Magnesium 1.6 mg/dL (1.6-2.3); Potassium 3.7 mmol/L (3.4-5.0); Sodium 133 mmol/L (137-145)
[2021-09-27] MEDS: polyethylene glycoL 3350 17 GM POWD.PACK PO (08:41)
[2021-09-27] MEDS: SENNA/DOCUSATE SODIUM TABLET 2 TAB PO ×2 (08:41→17:55)
[2021-09-27] MEDS: busPIRone HCL 10 MG TABLET PO ×3 (08:41→17:55)
[2021-09-27] MEDS: APIXABAN 2.5 MG TABLET PO ×2 (08:41→20:16)
[2021-09-27] MEDS: MULTIVITAMINS THERAPEUTIC TAB (*BKC) 1 TABLET BY MOUTH (08:41)
[2021-09-27] MEDS: FAMOTIDINE 20 MG TABLET PO ×2 (08:41→20:16)
[2021-09-27] MEDS: OLANZapine 2.5 MG TABLET PO ×3 (08:42→17:54)
[2021-09-27] MEDS: PARoxetine 10 MG TABLET PO ×2 (08:44→17:55)
[2021-09-27] MEDS: MAGNESIUM SULF 2 GM/WATER 50ML 2 GM/50 ML BAG IVPB (08:44)
[2021-09-27] MEDS: lisinopriL 5 MG TABLET PO (08:44)
--- NOTE | 2021-09-27 09:45 | WPDANESPN ---
Anes - Prog Note Post-Op Date/Time: 09/27/21 09:45 Cardiovascular status: normal Respiratory status: normal Airway patency: baseline Mental status: baseline Post-Op hydration status: normal Vital Signs: Last Vital Signs Temp 97.3 F L 09/27/21 04:10 Pulse 97 09/27/21 04:10 Resp 16 09/27/21 04:10 BP 148/58 H 09/27/21 04:10 Pulse Ox 97 09/27/21 04:10 Pain Score (VAS): 0/10 I/O: Intake & Output 09/26/21 09/27/21 09/27/21 23:59 07:59 15:59 Intake Total 350 1300 Output Total 900 Balance 350 400 Laboratory Tests 09/27/21 05:22 09/27/21 05:22 09/25/21 09/26/21 09/26/21 14:03 06:02 06:02 WBC RBC Hgb Hct MCV MCH MCHC RDW Plt Count MPV Immature Gran % (Auto) Neut % (Auto) Lymph % (Auto) [place] % (Auto) Eos % (Auto) Baso % (Auto) Lymph # (Auto) [place] # (Auto) Eos # (Auto) Baso # (Auto) Abs Immat Gran (auto) Absolute Neuts (auto) Absolute Nucleated RBC Nucleated RBC % Sodium Potassium Chloride Carbon Dioxide Anion Gap BUN Creatinine Estim Creat Clear Calc Estimated GFR Glucose Calcium Magnesium Total Bilirubin AST ALT Alkaline Phosphatase Total Protein Albumin Free T4 0.82 Total T3 0.69 L Blood Type O Positive Antibody Screen Negative Crossmatch See Detail 09/26/21 09/27/21 09/27/21 18:46 05:22 05:22 WBC 9.0 RBC 2.66 L Hgb 9.4 L 8.8 L Hct 30.1 L 26.7 L MCV 100.4 H MCH 33.1 MCHC 33.0 RDW 15.4 H Plt Count 181 MPV 9.2 Immature Gran % (Auto) 0.6 H Neut % (Auto) 76.4 H Lymph % (Auto) 12.3 L [place] % (Auto) 9.6 H Eos % (Auto) 0.8 Baso % (Auto) 0.3 Lymph # (Auto) 1.11 [place] # (Auto) 0.9 H Eos # (Auto) 0.1 Baso # (Auto) 0.0 Abs Immat Gran (auto) 0.05 H Absolute Neuts (auto) 6.9 H Absolute Nucleated RBC 0.0 Nucleated RBC % 0.0 Sodium 133 L Potassium 3.7 Chloride 103 Carbon Dioxide 23 Anion Gap 7 L BUN 14 D Creatinine 0.90 Estim Creat Clear Calc Not Reportable Estimated GFR 60 Glucose 103 Calcium 7.7 L Magnesium 1.6 Total Bilirubin 0.5 AST 87 H ALT 31 Alkaline Phosphatase 66 Total Protein 5.0 L Albumin 3.1 L Free T4 Total T3 Blood Type Antibody Screen Crossmatch Patient Feedback: Patient satisfied with anesthetic care.
--- NOTE | 2021-09-27 10:11 | PM.PNCARD ---
Progress Note: A&P Assessment and Plan (1) Coronary artery disease: Code(s): I25.10 - Atherosclerotic heart disease of [place] coronary artery without angina pectoris Status: Acute Assessment and Plan: remote history of CAD resulting in a stent about 10 years ago. She does not have a CABG history. There has been no worrisome anginal symptoms recently When talking to the patient's daughter. Continue outpatient regimen (2) Preop cardiovascular exam: Code(s): Z01.810 - Encounter for preprocedural cardiovascular examination Status: Acute (3) Hypertension: Code(s): I10 - Essential (primary) hypertension Status: Acute Assessment and Plan: a bit hypotensive at this point. Caution with over-sedation. continue IV fluids (4) Hypothyroidism: Code(s): E03.9 - Hypothyroidism, unspecified Status: Chronic Assessment and Plan: on replacement. Per hospitalist (5) Closed fracture of right hip: Code(s): S72.001A - Fracture of unspecified part of neck of right femur, initial encounter for closed fracture Status: Acute Assessment and Plan: Will discontinue her IV fluids to avoid iatrogenic volume overload. Incentive spirometer is advised. (6) Dementia: Code(s): F03.90 - Unspecified dementia without behavioral disturbance Status: Acute Assessment and Plan: Continue Aricept (7) Carotid bruit: Code(s): R09.89 - Other specified symptoms and signs involving the circulatory and respiratory systems Status: Acute Assessment and Plan: No significant carotid disease bilaterally Subjective Date/time seen: 09/27/21 10:11 Interval history: 86-year-old status post fall and fracture. Surgery performed yesterday. Date of service 09/27/2021: Feels okay although hard of hearing. Denies any chest pain or shortness of breath. Review of Systems Review of Systems: All systems reviewed & are unremarkable except as noted in HPI and below Constitutional: Constitutional: Denies fatigue, Denies headache(s) and Denies weakness Eyes: Eyes: Denies blurry vision ENT: Denies Normal hearing present, Denies headache(s), Denies lip swelling and Denies neck pain Cardiovascular: Cardiovascular: Denies chest pain and Denies dyspnea Respiratory: Respiratory: Denies dyspnea Gastrointestinal: Gastrointestinal: Denies abdominal pain Genitourinary: Genitourinary: Denies hematuria and Denies flank pain Musculoskeletal: Musculoskeletal: Denies back pain and Denies neck pain Integumentary/Breasts: Skin/Breast: Denies dry skin Neurologic: Denies Normal hearing present, Reports confusion, Denies headache(s) and Denies weakness Psychiatric: Psychiatric: Denies anxiety and Reports confusion Endocrine: Endocrine: Denies fatigue Hematologic/Lymphatic: Hematologic/Lymphatic: Denies easy bleeding Allergic/Immunologic: Allergic/Immunologic: Denies GI upset with certain foods and Denies lip swelling Exam Narrative: Patient appears stated age. She is somnolent but responsive Const: General: comfortable, no acute distress and confusion Orientation/consciousness: confusion HENMT: General nose exam: Normal nares present Eyes: Sclera: sclerae normal Neck: Neck: supple and no JVD Other: bilateral carotidbruits are heard Chest: Other: no reproducible chest wall pain to palpation Resp: Auscultation: diminished lung sounds Cardio: Rate: regular rate Rhythm: regular rhythm Heart sounds: Murmur heart sound present ( 1-2/6 systolic ejection murmur) GI: Auscultation: normal bowel sounds Skin: General skin exam: normal color and no erythema Neuro: General: confusion Cranial nerves: No Normal hearing present Cognition (Neuro): normal cognition Speech: normal speech Extrem: General: normal to inspection and no edema Psych: Mental Status: mental status grossly normal Objective Data Vital Signs Vital Signs: Shandra
--- NOTE | 2021-09-27 10:40 | P.PNIM_ITS ---
Progress Note: A&P Assessment and Plan (1) Closed fracture of right hip: Code(s): S72.001A - Fracture of unspecified part of neck of right femur, initial encounter for closed fracture Status: Acute Assessment and Plan: * mechanical fracture from ground level * Hip/Pel xray found comminuted right intratrochanteric hip fracture * NPO after midnight for surgical services * Ortho consulted thank you * Surgical service performed: Open reduction internal fixation right intertrochanteric hip fracture with Affiixus trochanteric nail device * LR at 50ml/hr, DC * Acetamenophen IV scheduled Q6hr, Morphine, and oxycodone PRN * Strict no weight bearing for 6 weeks * Dr. Finn to manage post-op care * DVT determined by ortho (2) Fall from ground level: Code(s): W18.30XA - Fall on same level, unspecified, initial encounter Status: Acute Assessment and Plan: * As above. (3) Macrocytic anemia: Code(s): D53.9 - Nutritional anemia, unspecified Status: Acute Assessment and Plan: * H/H 8.8/26.7, MCV 100.4 * Anemia labs: Iron 24, TIBC 390, % Sat 6, B12 >1000, TSH 8.780 * On B12 and folic acid at home * Start patient on PO iron: Ferrous sulfate 324mg PO BID with food * Trend labs * Transfuse if needed (4) Renal insufficiency: Code(s): N28.9 - Disorder of kidney and ureter, unspecified Status: Acute Assessment and Plan: * Seems to be resolved at this time * No baseline * Current BUN/Cr 14/0.90 * Trend labs * Could be an aspect of dehydration, or could be chronic * Trend labs (5) Leukocytosis: Code(s): D72.829 - Elevated white blood cell count, unspecified Status: Acute Assessment and Plan: * WBC 13.8 upon admission * Currently trending down 9.0today * Probably stress response * Trend labs (6) Hypertension: Code(s): I10 - Essential (primary) hypertension Status: Acute Assessment and Plan: * Current BP 149/52 * Restarted lisinopril 5mg PO daily * trend BP * adjust medications as needed (7) Hypothyroidism: Code(s): E03.9 - Hypothyroidism, unspecified Status: Chronic Assessment and Plan: * Continue levothyroxine 50 mcg PO daily * TSH 8.780, T4 0.82, T3 0.69 (8) Coronary artery disease: Code(s): I25.10 - Atherosclerotic heart disease of [place] coronary artery without angina pectoris Status: Acute Assessment and Plan: * Probably not relevant at this time * Aspirin on hold for surgical procedure * Status post stent many years ago * No complaints of chest pain or shortness of breath * EKG shows left bundle branch block which is presumably an old finding * Troponin is undetectable. (9) Dementia: Code(s): F03.90 - Unspecified dementia without behavioral disturbance Status: Acute Assessment and Plan: * Continue donepezil PO HS and olanzapine 2.5 TID * Monitor for mood changes (10) Anxiety: Code(s): F41.9 - Anxiety disorder, unspecified Status: Acute Assessment and Plan: * Continue buspirone and paroxetine. (11) Hypomagnesemia: Code(s): E83.42 - Hypomagnesemia Status: Acute Assessment and Plan: * Mg 1.6 * 2gm once * Trend * Replace as needed Time Spent With Patient Time with patient: Greater than 35 minutes Subjecti
--- NOTE | 2021-09-27 10:40 | PM.IMPN ---
Progress Note: A&P Assessment and Plan (1) Closed fracture of right hip: Code(s): S72.001A - Fracture of unspecified part of neck of right femur, initial encounter for closed fracture Status: Acute Assessment and Plan: mechanical fracture from ground level Hip/Pel xray found comminuted right intratrochanteric hip fracture NPO after midnight for surgical services Ortho consulted thank you Surgical service performed: Open reduction internal fixation right intertrochanteric hip fracture with Affiixus trochanteric nail device LR at 50ml/hr, DC Acetamenophen IV scheduled Q6hr, Morphine, and oxycodone PRN Strict no weight bearing for [address] Finn to manage post-op care DVT determined by ortho (2) Fall from ground level: Code(s): W18.30XA - Fall on same level, unspecified, initial encounter Status: Acute Assessment and Plan: As above. (3) Macrocytic anemia: Code(s): D53.9 - Nutritional anemia, unspecified Status: Acute Assessment and Plan: H/H 8.8/26.7, MCV 100.4 Anemia labs: Iron 24, TIBC 390, % Sat 6, B12 >1000, TSH 8.780 On B12 and folic acid at home Start patient on PO iron: Ferrous sulfate 324mg PO BID with food Trend labs Transfuse if needed (4) Renal insufficiency: Code(s): N28.9 - Disorder of kidney and ureter, unspecified Status: Acute Assessment and Plan: Seems to be resolved at this time No baseline Current BUN/Cr 14/0.90 Trend labs Could be an aspect of dehydration, or could be chronic Trend labs (5) Leukocytosis: Code(s): D72.829 - Elevated white blood cell count, unspecified Status: Acute Assessment and Plan: WBC 13.8 upon admission Currently trending down 9.0today Probably stress response Trend labs (6) Hypertension: Code(s): I10 - Essential (primary) hypertension Status: Acute Assessment and Plan: Current BP 149/52 Restarted lisinopril 5mg PO daily trend BP adjust medications as needed (7) Hypothyroidism: Code(s): E03.9 - Hypothyroidism, unspecified Status: Chronic Assessment and Plan: Continue levothyroxine 50 mcg PO daily TSH 8.780, T4 0.82, T3 0.69 (8) Coronary artery disease: Code(s): I25.10 - Atherosclerotic heart disease of [place] coronary artery without angina pectoris Status: Acute Assessment and Plan: Probably not relevant at this time Aspirin on hold for surgical procedure Status post stent many years ago No complaints of chest pain or shortness of breath EKG shows left bundle branch block which is presumably an old finding Troponin is undetectable. (9) Dementia: Code(s): F03.90 - Unspecified dementia without behavioral disturbance Status: Acute Assessment and Plan: Continue donepezil PO HS and olanzapine 2.5 TID Monitor for mood changes (10) Anxiety: Code(s): F41.9 - Anxiety disorder, unspecified Status: Acute Assessment and Plan: Continue buspirone and paroxetine. (11) Hypomagnesemia: Code(s): E83.42 - Hypomagnesemia Status: Acute Assessment and Plan: Mg 1.6 2gm once Trend Replace as needed Time Spent With Patient Time with patient: Greater than 35 minutes Subjective Date/time seen: 09/27/21 13:32 Interval history: Date/Time: 09/25/21 16:45 Narrative: This is a pleasant 86-year-old female with history of coronary artery disease status post CABG many years ago, hypertension, anxiety, hypothyroidism, and dementia who presented to the emergency department earlier today via private vehicle from home for evaluation of right hip pain after fall. The patient received morphine not long prior to my arrival to the room and she is somewhat somnolent and is not able to provide a good history, probably in some part due to her dementia. As such, some of the foll
--- NOTE | 2021-09-27 19:01 | PM.PNORT ---
Progress Note: A&P Additional Plan Postoperative day 1. After internal fixation of comminuted right intertrochanteric hip fracture. Her hemoglobin is 8.8. Her iron was low. TSH was elevated with low T3. Twenty-five hydroxy vitamin-D level was normal. Afebrile with stable vital signs. Dressings on her hip are dry. She is sleeping comfortably. Her daughter was present and notes that her mother is doing well. Recheck CBC in the morning. Subjective Subjective Date/Time Seen: 09/27/21 19:01 Objective Data Vital Signs Vital Signs: Vital Signs - 24 hr 09/26/21 19:15 09/26/21 19:30 09/26/21 20:00 Temperature 37.2 C 36.8 C 36.9 C Pulse Rate 104 H 100 88 Respiratory Rate 16 16 16 Blood Pressure 129/65 131/68 109/57 L Pulse Oximetry 97 93 100 09/26/21 21:00 09/27/21 00:00 09/27/21 00:10 Temperature 37.5 C 35.8 C L Pulse Rate 95 75 73 Respiratory Rate 16 16 Blood Pressure 105/50 L 91/42 L Pulse Oximetry 97 97 09/27/21 04:00 09/27/21 04:10 09/27/21 08:00 Temperature 36.3 C L Pulse Rate 93 97 102 H Respiratory Rate 16 Blood Pressure 148/58 H Pulse Oximetry 97 09/27/21 10:40 09/27/21 12:00 09/27/21 16:00 Temperature 36.8 C Pulse Rate 115 H 116 H 129 H Respiratory Rate 18 Blood Pressure 149/52 H Pulse Oximetry 95 09/27/21 18:30 Temperature 36.6 C Pulse Rate 104 H Respiratory Rate 16 Blood Pressure 120/51 L Pulse Oximetry 97 Intake/Output Intake/Output: Intake & Output 09/24/21 09/25/21 09/26/21 09/27/21 23:59 23:59 23:59 23:59 Intake Total 500 1800 1520 Output Total 450 1900 Balance 500 1350 -380 Meds/Results Medications: Active Medications Generic Name Dose Route Start Last Admin Trade Name Freq PRN Reason Stop Dose Admin Acetaminophen 650 mg 09/26/21 18:25 09/27/21 17:54 Acetaminophen 325 Mg Tablet PO 650 mg Q6HR ASHLEY Administration Al Hydrox/Mg Hydrox/Simethicone 30 ml 09/26/21 18:25 Mag Hydrox/Al Hydrox/Simeth 30 Ml Udc PO Q6H PRN Indigestion Apixaban 2.5 mg 09/27/21 09:00 09/27/21 08:41 Apixaban 2.5 Mg Tablet PO 10/31/21 21:01 2.5 mg Q12HR ASHLEY Administration Aspirin 81 mg 09/26/21 21:00 09/26/21 20:19 Aspirin 81 Mg Chewable Tablet PO 10/26/21 20:59 81 mg HS ASHLEY Administration Buspirone HCl 10 mg 09/26/21 09:00 09/27/21 17:55 Buspirone Hcl 10 Mg Tablet PO 10 mg TID ASHLEY Administration Donepezil HCl 5 mg 09/26/21 21:00 09/26/21 20:19 Donepezil Hcl 5 Mg Tablet PO 5 mg HS ASHLEY Administration Famotidine 20 mg 09/26/21 21:00 09/27/21 08:41 Famotidine 20 Mg Tablet PO 20 mg Q12HR ASHLEY Administration Hydroxyzine HCl 50 mg 09/26/21 18:25 Hydroxyzine Hcl 25 Mg Tablet PO Q4H PRN Itching Levothyroxine Sodium 50 mcg 09/26/21 06:30 09/27/21 06:12 Levothyroxine Sodium 50 Mcg Tablet PO 50 mcg DAILY@0630 ASHLEY Administration Lisinopril 5 mg 09/26/21 09:00 09/27/21 08:44 Lisinopril 5 Mg Tablet PO 5 mg DAILY ASHLEY Administration Morphine Sulfate 2 mg 09/26/21 18:25 Morphine Sulfate (*Crx) 2 Mg/Ml Inj IV PUSH Q3H PRN Pain Rated 7-10 Multivitamins Therapeutic 1 tablet 09/27/21 09:00 09/27/21 08:41 Multivitamins Therapeutic Tab (*Bkc) BY MOUTH 10/27/21 08:59 1 tablet DAILY ASHLEY Administration Naloxone HCl 0.1 mg 09/26/21 18:25 Naloxone Hcl 0.4 Mg/Ml Vial IV PUSH Q2M PRN Opiate Reversal Olanzapine 2.5 mg 09/26/21 09:00 09/27/21 17:54 Olanzapine 2.5 Mg Tablet PO 2.5 mg TID ASHLEY Administration Ondansetron HCl 4 mg 09/26/21 18:25 Ondansetron Inj 4 Mg/2 Ml Vial IV PUSH Q4H PRN Nausea And Vomiting Oxycodone HCl 2.5 mg 09/26/21 18:25 09/27/21 17:55 Oxycodone Hcl (*Crx) 2.5 Mg Tab Ir PO 2.5 mg Q4H PRN Administration Pain Rated 4-6 Paroxetine HCl 10 mg 09/26/21 08:15 09/27/21 17:55 Paroxetine 10 Mg Tablet PO 10 mg BIDWM ASHLEY Administration Polyethylene Glycol 1
[2021-09-27] MEDS: ASPIRIN 81 MG CHEWABLE TABLET PO (20:16)
[2021-09-27] MEDS: DONEPEZIL HCL 5 MG TABLET PO (20:16)
[2021-09-28] VITALS (12 sets, daily range): BP systolic 95–162; BP diastolic 41–89; PULSE 68–109; RESP 16–20; TEMP 35.7–36.6; O2SAT 93–96
[2021-09-28] MEDS: oxyCODONE HCL (*CRX) 2.5 MG TAB IR PO ×3 (03:32→20:25)
[2021-09-28 05:52] LABS: Basophils Percent Auto 0.3 % (0.2-1.2); Eosinophils Absolute Auto 0.1 K/mm3 (0-0.3); Eosinophils Percent Auto 0.7 % (0-4.4); Hemoglobin 8.7 g/dL (12.0-15.0); Immature Granulocyte Absolute 0.07 K/mm3 (0.00-0.031); Immature Granulocyte Percent A 0.6 % (0-0.5); Lymphocytes Absolute Auto 1.62 K/mm3 (0.9-3.2); Lymphocytes Percent Auto 13.7 % (18.3-44.2); Mean Corpuscular HGB Conc 32.2 g/dl (32-36); Mean Corpuscular Hemoglobin 32.8 pg (26-34); Mean Corpuscular Volume 101.9 fl (80-100); Mean Platelet Volume 9.3 fl (7.4-10.4); Monocytes Percent Auto 8.6 % (2.6-8.5); Neutrophils Percent Auto 76.1 % (45.5-73.1); Platelet Count Result 215 k/mm3 (150-375); Red Blood Count 2.65 M/mm3 (4.2-5.4); White Blood Count 11.8 K/mm3 (4.5-10.0)
[2021-09-28] MEDS: LEVOTHYROXINE SODIUM 50 MCG TABLET PO (05:55)
[2021-09-28] MEDS: ACETAMINOPHEN 325 MG TABLET 650 MG PO ×4 (05:55→23:52)
[2021-09-28 06:12] LABS: Alanine Aminotransferase 22 U/L (4-35); Albumin Level 2.9 g/dL (3.5-5.1); Alkaline Phosphatase 77 U/L (38-126); Anion Gap 4 mmol/L (8-16); Aspartate Amino Transferase 64 U/L (14-36); Bilirubin,Total 0.5 mg/dL (0.2-1.3); Blood Urea Nitrogen 15 mg/dL (7-17); Carbon Dioxide 26 mmol/L (22-30); Chloride 104 mmol/L (98-107); Estimated Glomerular Filt Rate 53; Glucose 114 mg/dL (65-110); Magnesium 2.2 mg/dL (1.6-2.3); Potassium 3.8 mmol/L (3.4-5.0); Sodium 134 mmol/L (137-145)
--- NOTE | 2021-09-28 07:18 | PM.PNORT ---
Progress Note: A&P Additional Plan Postop day 2 patient Is resting comfortably. Hemoglobin is stable. Wounds are dry. She has no swelling the extremity. Patient is working with physical therapy. Social Work is rehab placement. Again patient will be strict bed to chair for 6 weeks with nonweightbearing right leg. Subjective Subjective Date/Time Seen: 09/28/21 07:18 Objective Data Vital Signs Vital Signs: Vital Signs - 24 hr 09/27/21 08:00 09/27/21 10:40 09/27/21 12:00 Temperature 36.8 C Pulse Rate 102 H 115 H 116 H Respiratory Rate 18 Blood Pressure 149/52 H Pulse Oximetry 95 09/27/21 16:00 09/27/21 18:30 09/27/21 20:00 Temperature 36.6 C Pulse Rate 129 H 104 H 82 Respiratory Rate 16 18 Blood Pressure 120/51 L Pulse Oximetry 97 97 09/27/21 20:17 09/28/21 00:00 09/28/21 03:41 Temperature 36.4 C 36.5 C Pulse Rate 82 77 85 Respiratory Rate 18 16 Blood Pressure 96/46 L 106/44 L Pulse Oximetry 97 94 09/28/21 04:00 Temperature Pulse Rate 80 Respiratory Rate Blood Pressure Pulse Oximetry Intake/Output Intake/Output: Intake & Output 09/25/21 09/26/21 09/27/21 09/28/21 23:59 23:59 23:59 23:59 Intake Total 500 1800 1520 100 Output Total 450 1900 885 Balance 500 4320 -893 -748 Meds/Results Medications: Active Medications Generic Name Dose Route Start Last Admin Trade Name Freq PRN Reason Stop Dose Admin Acetaminophen 650 mg 09/26/21 18:25 09/28/21 05:55 Acetaminophen 325 Mg Tablet PO 650 mg Q6HR ASHLEY Administration Al Hydrox/Mg Hydrox/Simethicone 30 ml 09/26/21 18:25 Mag Hydrox/Al Hydrox/Simeth 30 Ml Udc PO Q6H PRN Indigestion Apixaban 2.5 mg 09/27/21 09:00 09/27/21 20:16 Apixaban 2.5 Mg Tablet PO 10/31/21 21:01 2.5 mg Q12HR ASHLEY Administration Aspirin 81 mg 09/26/21 21:00 09/27/21 20:16 Aspirin 81 Mg Chewable Tablet PO 10/26/21 20:59 81 mg HS ASHLEY Administration Buspirone HCl 10 mg 09/26/21 09:00 09/27/21 17:55 Buspirone Hcl 10 Mg Tablet PO 10 mg TID ASHLEY Administration Donepezil HCl 5 mg 09/26/21 21:00 09/27/21 20:16 Donepezil Hcl 5 Mg Tablet PO 5 mg HS ASHLEY Administration Famotidine 20 mg 09/26/21 21:00 09/27/21 20:16 Famotidine 20 Mg Tablet PO 20 mg Q12HR ASHLEY Administration Hydroxyzine HCl 50 mg 09/26/21 18:25 Hydroxyzine Hcl 25 Mg Tablet PO Q4H PRN Itching Levothyroxine Sodium 50 mcg 09/26/21 06:30 09/28/21 05:55 Levothyroxine Sodium 50 Mcg Tablet PO 50 mcg DAILY@0630 ASHLEY Administration Lisinopril 5 mg 09/26/21 09:00 09/27/21 08:44 Lisinopril 5 Mg Tablet PO 5 mg DAILY ASHLEY Administration Morphine Sulfate 2 mg 09/26/21 18:25 Morphine Sulfate (*Crx) 2 Mg/Ml Inj IV PUSH Q3H PRN Pain Rated 7-10 Multivitamins Therapeutic 1 tablet 09/27/21 09:00 09/27/21 08:41 Multivitamins Therapeutic Tab (*Bkc) BY MOUTH 10/27/21 08:59 1 tablet DAILY ASHLEY Administration Naloxone HCl 0.1 mg 09/26/21 18:25 Naloxone Hcl 0.4 Mg/Ml Vial IV PUSH Q2M PRN Opiate Reversal Olanzapine 2.5 mg 09/26/21 09:00 09/27/21 17:54 Olanzapine 2.5 Mg Tablet PO 2.5 mg TID ASHLEY Administration Ondansetron HCl 4 mg 09/26/21 18:25 Ondansetron Inj 4 Mg/2 Ml Vial IV PUSH Q4H PRN Nausea And Vomiting Oxycodone HCl 2.5 mg 09/26/21 18:25 09/28/21 03:32 Oxycodone Hcl (*Crx) 2.5 Mg Tab Ir PO 2.5 mg Q4H PRN Administration Pain Rated 4-6 Paroxetine HCl 10 mg 09/26/21 08:15 09/27/21 17:55 Paroxetine 10 Mg Tablet PO 10 mg BIDWM ASHLEY Administration Polyethylene Glycol 17 gm 09/27/21 09:00 09/27/21 08:41 Polyethylene Glycol 3350 17 Gm Powd.Pack PO 17 gm QAM ASHLEY Administration Senna/Docusate Sodium 2 tab 09/27/21 09:00 09/27/21 17:55 Senna/Docusate Sodium Tablet PO 2 tab BID ASHLEY Administration Radiology Results: ITS Impressions Hip/Pelvis X-Ray 09/25/21 12:32 IMP
[2021-09-28 07:47] LABS: Glucose Point of Care 100 mg/dl (65-105)
[2021-09-28] MEDS: busPIRone HCL 10 MG TABLET PO ×3 (08:15→16:43)
[2021-09-28] MEDS: MULTIVITAMINS THERAPEUTIC TAB (*BKC) 1 TABLET BY MOUTH (08:15)
[2021-09-28] MEDS: OLANZapine 2.5 MG TABLET PO ×3 (08:15→16:44)
[2021-09-28] MEDS: lisinopriL 5 MG TABLET PO (08:16)
[2021-09-28] MEDS: PARoxetine 10 MG TABLET PO ×2 (08:16→16:44)
[2021-09-28] MEDS: polyethylene glycoL 3350 17 GM POWD.PACK PO (08:16)
[2021-09-28] MEDS: APIXABAN 2.5 MG TABLET PO ×2 (08:16→20:25)
[2021-09-28] MEDS: FAMOTIDINE 20 MG TABLET PO ×2 (08:16→20:25)
[2021-09-28] MEDS: SENNA/DOCUSATE SODIUM TABLET 2 TAB PO ×2 (08:16→16:44)
--- NOTE | 2021-09-28 09:00 | P.PNIM_ITS ---
Progress Note: A&P Assessment and Plan (1) Closed fracture of right hip: Code(s): S72.001A - Fracture of unspecified part of neck of right femur, initial encounter for closed fracture Status: Acute Assessment and Plan: * POD 2 * mechanical fracture from ground level * Hip/Pel xray found comminuted right intratrochanteric hip fracture * NPO after midnight for surgical services * Ortho consulted thank you * Surgical service performed: Open reduction internal fixation right intertrochanteric hip fracture with Affiixus trochanteric nail device * Acetamenophen IV scheduled Q6hr, Morphine, and oxycodone PRN * Strict no weight bearing for 6 weeks * Dr. Finn to manage post-op care * DVT determined by ortho (2) Fall from ground level: Code(s): W18.30XA - Fall on same level, unspecified, initial encounter Status: Acute Assessment and Plan: * As above. (3) Macrocytic anemia: Code(s): D53.9 - Nutritional anemia, unspecified Status: Acute Assessment and Plan: * H/H 8.7/27.0 MCV 101.9 * Anemia labs: Iron 24, TIBC 390, % Sat 6, B12 >1000, TSH 8.780 * On B12 and folic acid at home * Start patient on PO iron: Ferrous sulfate 324mg PO BID with food * Trend labs * Transfuse if needed (4) Renal insufficiency: Code(s): N28.9 - Disorder of kidney and ureter, unspecified Status: Acute Assessment and Plan: * Seems to be resolved at this time * No baseline * Current BUN/Cr 15/1.00 * Trend labs * Could be an aspect of dehydration, or could be chronic * Trend labs (5) Leukocytosis: Code(s): D72.829 - Elevated white blood cell count, unspecified Status: Acute Assessment and Plan: * WBC 13.8 upon admission * Currently 11.8 * Probably stress response * Trend labs (6) Hypertension: Code(s): I10 - Essential (primary) hypertension Status: Acute Assessment and Plan: * Current BP 162/61 * Restarted lisinopril 5mg PO daily * trend BP * adjust medications as needed (7) Hypothyroidism: Code(s): E03.9 - Hypothyroidism, unspecified Status: Chronic Assessment and Plan: * Continue levothyroxine 50 mcg PO daily * TSH 8.780, T4 0.82, T3 0.69 (8) Coronary artery disease: Code(s): I25.10 - Atherosclerotic heart disease of [place] coronary artery without angina pectoris Status: Acute Assessment and Plan: * Probably not relevant at this time * Aspirin on hold for surgical procedure * Status post stent many years ago * No complaints of chest pain or shortness of breath * EKG shows left bundle branch block which is presumably an old finding * Troponin is undetectable. (9) Dementia: Code(s): F03.90 - Unspecified dementia without behavioral disturbance Status: Acute Assessment and Plan: * Continue donepezil PO HS and olanzapine 2.5 TID * Monitor for mood changes (10) Anxiety: Code(s): F41.9 - Anxiety disorder, unspecified Status: Acute Assessment and Plan: * Continue buspirone and paroxetine. (11) Hypomagnesemia: Code(s): E83.42 - Hypomagnesemia Status: Acute Assessment and Plan: * Mg 2.2 * Trend * Replace as needed Time Spent With Patient Time with patient: Greater than 35 minutes Subjective Date/time seen: 09/28/21 0900
--- NOTE | 2021-09-28 09:00 | PM.IMPN ---
Progress Note: A&P Assessment and Plan (1) Closed fracture of right hip: Code(s): S72.001A - Fracture of unspecified part of neck of right femur, initial encounter for closed fracture Status: Acute Assessment and Plan: POD 2 mechanical fracture from ground level Hip/Pel xray found comminuted right intratrochanteric hip fracture NPO after midnight for surgical services Ortho consulted thank you Surgical service performed: Open reduction internal fixation right intertrochanteric hip fracture with Affiixus trochanteric nail device Acetamenophen IV scheduled Q6hr, Morphine, and oxycodone PRN Strict no weight bearing for [address] Finn to manage post-op care DVT determined by ortho (2) Fall from ground level: Code(s): W18.30XA - Fall on same level, unspecified, initial encounter Status: Acute Assessment and Plan: As above. (3) Macrocytic anemia: Code(s): D53.9 - Nutritional anemia, unspecified Status: Acute Assessment and Plan: H/H 8.7/27.0 MCV 101.9 Anemia labs: Iron 24, TIBC 390, % Sat 6, B12 >1000, TSH 8.780 On B12 and folic acid at home Start patient on PO iron: Ferrous sulfate 324mg PO BID with food Trend labs Transfuse if needed (4) Renal insufficiency: Code(s): N28.9 - Disorder of kidney and ureter, unspecified Status: Acute Assessment and Plan: Seems to be resolved at this time No baseline Current BUN/Cr 15/1.00 Trend labs Could be an aspect of dehydration, or could be chronic Trend labs (5) Leukocytosis: Code(s): D72.829 - Elevated white blood cell count, unspecified Status: Acute Assessment and Plan: WBC 13.8 upon admission Currently 11.8 Probably stress response Trend labs (6) Hypertension: Code(s): I10 - Essential (primary) hypertension Status: Acute Assessment and Plan: Current BP 162/61 Restarted lisinopril 5mg PO daily trend BP adjust medications as needed (7) Hypothyroidism: Code(s): E03.9 - Hypothyroidism, unspecified Status: Chronic Assessment and Plan: Continue levothyroxine 50 mcg PO daily TSH 8.780, T4 0.82, T3 0.69 (8) Coronary artery disease: Code(s): I25.10 - Atherosclerotic heart disease of [place] coronary artery without angina pectoris Status: Acute Assessment and Plan: Probably not relevant at this time Aspirin on hold for surgical procedure Status post stent many years ago No complaints of chest pain or shortness of breath EKG shows left bundle branch block which is presumably an old finding Troponin is undetectable. (9) Dementia: Code(s): F03.90 - Unspecified dementia without behavioral disturbance Status: Acute Assessment and Plan: Continue donepezil PO HS and olanzapine 2.5 TID Monitor for mood changes (10) Anxiety: Code(s): F41.9 - Anxiety disorder, unspecified Status: Acute Assessment and Plan: Continue buspirone and paroxetine. (11) Hypomagnesemia: Code(s): E83.42 - Hypomagnesemia Status: Acute Assessment and Plan: Mg 2.2 Trend Replace as needed Time Spent With Patient Time with patient: Greater than 35 minutes Subjective Date/time seen: 09/28/21 0900 Interval history: Date/Time: 09/25/21 16:45 Narrative: This is a pleasant 86-year-old female with history of coronary artery disease status post CABG many years ago, hypertension, anxiety, hypothyroidism, and dementia who presented to the emergency department earlier today via private vehicle from home for evaluation of right hip pain after fall. The patient received morphine not long prior to my arrival to the room and she is somewhat somnolent and is not able to provide a good history, probably in some part due to her dementia. As such, some of the following information is obtained via a review
--- NOTE | 2021-09-28 10:50 | PM.PNCARD ---
Progress Note: A&P Assessment and Plan (1) Coronary artery disease: Code(s): I25.10 - Atherosclerotic heart disease of [place] coronary artery without angina pectoris Status: Acute Assessment and Plan: remote history of CAD resulting in a stent about 10 years ago. She does not have a CABG history. There has been no worrisome anginal symptoms recently When talking to the patient's daughter. Continue outpatient regimen. (2) Preop cardiovascular exam: Code(s): Z01.810 - Encounter for preprocedural cardiovascular examination Status: Acute (3) Hypertension: Code(s): I10 - Essential (primary) hypertension Status: Acute Assessment and Plan: Blood pressure has been labile. (4) Hypothyroidism: Code(s): E03.9 - Hypothyroidism, unspecified Status: Chronic Assessment and Plan: on replacement. Per hospitalist (5) Closed fracture of right hip: Code(s): S72.001A - Fracture of unspecified part of neck of right femur, initial encounter for closed fracture Status: Acute Assessment and Plan: POD 2 ORIF of right hip. IV fluids have stopped Incentive spirometry bowel regimen DVT prophylaxis per ortho (6) Dementia: Code(s): F03.90 - Unspecified dementia without behavioral disturbance Status: Acute Assessment and Plan: Continue Aricept (7) Carotid bruit: Code(s): R09.89 - Other specified symptoms and signs involving the circulatory and respiratory systems Status: Acute Assessment and Plan: No significant carotid disease bilaterally Additional Plan This is an 86-year-old female who presented to the hospital following a fall and was found to have an intertrochanteric fracture. We were asked to see the patient for cardiac clearance prior to surgery on 09/26/21. She has a history of coronary artery disease with stents that were placed about 10 years ago. Her coronary disease is been stable since that point. Not having any angina. Echocardiogram showed normal systolic function, EF 60 65%. She has been stable following surgery. No active cardiac issues this point. We will sign off. Thank for this consultation. Please do not hesitate to contact us if we can be of assistance in the care of this patient in any way. Subjective Date/time seen: 09/28/21 10:50 Interval history: 86-year-old status post fall and fracture. Surgery performed yesterday. Date of service 09/27/2021: Feels okay although hard of hearing. Denies any chest pain or shortness of breath. Date of service 09/28/2021: Very drowsy today. Daughter is at bedside. She is having some pain in her right hip. No chest pain or shortness of breath. Review of Systems Review of Systems: All systems reviewed & are unremarkable except as noted in HPI and below Constitutional: Constitutional: Denies fatigue, Denies headache(s) and Denies weakness Eyes: Eyes: Denies blurry vision ENT: Denies Normal hearing present, Denies headache(s), Denies lip swelling and Denies neck pain Cardiovascular: Cardiovascular: Denies chest pain and Denies dyspnea Respiratory: Respiratory: Denies dyspnea Gastrointestinal: Gastrointestinal: Denies abdominal pain Genitourinary: Genitourinary: Denies hematuria and Denies flank pain Musculoskeletal: Musculoskeletal: Denies back pain and Denies neck pain Integumentary/Breasts: Skin/Breast: Denies dry skin Neurologic: Denies Normal hearing present, Reports confusion, Denies headache(s) and Denies weakness Psychiatric: Psychiatric: Denies anxiety and Reports confusion Endocrine: Endocrine: Denies fatigue Hematologic/Lymphatic: Hematologic/Lymphatic: Denies easy bleeding Allergic/Immunologic: Allergic/Immunologic: Denies GI upset with certain foods and Denies lip swelling Exam Narrative: Patient appears stated age. She is somnolent but responsive Const: General: comfortable, no acute distress and confusion
[2021-09-28 11:42] LABS: Glucose Point of Care 109 mg/dl (65-105)
[2021-09-28 16:30] LABS: Glucose Point of Care 135 mg/dl (65-105)
[2021-09-28] MEDS: ASPIRIN 81 MG CHEWABLE TABLET PO (20:25)
[2021-09-28] MEDS: DONEPEZIL HCL 5 MG TABLET PO (20:25)
[2021-09-29] VITALS (11 sets, daily range): BP systolic 109–149; BP diastolic 49–68; PULSE 72–102; RESP 16–21; TEMP 35.7–36.3; O2SAT 72–100
[2021-09-29 05:31] LABS: Basophils Percent Auto 0.3 % (0.2-1.2); Eosinophils Absolute Auto 0.1 K/mm3 (0-0.3); Eosinophils Percent Auto 1.6 % (0-4.4); Hematocrit 25.4 % (37.0-47.0); Hemoglobin 8.4 g/dL (12.0-15.0); Immature Granulocyte Absolute 0.05 K/mm3 (0.00-0.031); Immature Granulocyte Percent A 0.6 % (0-0.5); Lymphocytes Absolute Auto 0.84 K/mm3 (0.9-3.2); Lymphocytes Percent Auto 9.4 % (18.3-44.2); Mean Corpuscular HGB Conc 33.1 g/dl (32-36); Mean Corpuscular Hemoglobin 33.5 pg (26-34); Mean Corpuscular Volume 101.2 fl (80-100); Mean Platelet Volume 8.8 fl (7.4-10.4); Monocytes Absolute Auto 0.8 K/mm3 (0.1-0.6); Monocytes Percent Auto 8.6 % (2.6-8.5); Neutrophils Absolute Auto 7.1 K/mm3 (1.3-6.7); Neutrophils Percent Auto 79.5 % (45.5-73.1); Platelet Count Result 257 k/mm3 (150-375); Red Blood Count 2.51 M/mm3 (4.2-5.4); Red Cell Distribution Width 14.5 % (11.5-14.5); White Blood Count 8.9 K/mm3 (4.5-10.0)
[2021-09-29 05:48] LABS: Alanine Aminotransferase 21 U/L (4-35); Albumin Level 2.8 g/dL (3.5-5.1); Alkaline Phosphatase 70 U/L (38-126); Anion Gap 0 mmol/L (8-16); Aspartate Amino Transferase 57 U/L (14-36); Bilirubin,Total 0.8 mg/dL (0.2-1.3); Blood Urea Nitrogen 17 mg/dL (7-17); Calcium 8.3 mg/dL (8.4-10.2); Carbon Dioxide 29 mmol/L (22-30); Chloride 107 mmol/L (98-107); Estimated Glomerular Filt Rate 60; Glucose 112 mg/dL (65-110); Magnesium 2.2 mg/dL (1.6-2.3); Sodium 136 mmol/L (137-145)
[2021-09-29] MEDS: LEVOTHYROXINE SODIUM 50 MCG TABLET PO (06:06)
[2021-09-29] MEDS: ACETAMINOPHEN 325 MG TABLET 650 MG PO ×4 (06:06→23:28)
[2021-09-29 07:57] LABS: Glucose Point of Care 104 mg/dl (65-105)
[2021-09-29] MEDS: busPIRone HCL 10 MG TABLET PO ×3 (08:42→16:52)
[2021-09-29] MEDS: APIXABAN 2.5 MG TABLET PO ×2 (08:42→20:59)
[2021-09-29] MEDS: OLANZapine 2.5 MG TABLET PO ×3 (08:42→16:51)
[2021-09-29] MEDS: PARoxetine 10 MG TABLET PO ×2 (08:42→16:52)
[2021-09-29] MEDS: FAMOTIDINE 20 MG TABLET PO ×2 (08:42→20:58)
[2021-09-29] MEDS: MULTIVITAMINS THERAPEUTIC TAB (*BKC) 1 TABLET BY MOUTH (08:43)
[2021-09-29] MEDS: lisinopriL 5 MG TABLET PO (08:43)
--- NOTE | 2021-09-29 09:20 | P.PNIM_ITS ---
Progress Note: A&P Assessment and Plan (1) Closed fracture of right hip: Code(s): S72.001A - Fracture of unspecified part of neck of right femur, initial encounter for closed fracture Status: Acute Assessment and Plan: * POD 3 * mechanical fracture from ground level * Hip/Pel xray found comminuted right intratrochanteric hip fracture * Ortho consulted thank you * Surgical service performed: Open reduction internal fixation right intertrochanteric hip fracture with Affiixus trochanteric nail device * Acetamenophen IV scheduled Q6hr, Morphine, and oxycodone PRN * Strict no weight bearing for 6 weeks * Dr. Finn to manage post-op care * DVT determined by ortho (2) Fall from ground level: Code(s): W18.30XA - Fall on same level, unspecified, initial encounter Status: Acute Assessment and Plan: * As above. (3) Macrocytic anemia: Code(s): D53.9 - Nutritional anemia, unspecified Status: Acute Assessment and Plan: * H/H 8.4/25.4 * Anemia labs: Iron 24, TIBC 390, % Sat 6, B12 >1000, TSH 8.780 * On B12 and folic acid at home which was restarted * Ferrous sulfate 324mg PO BID with food * Trend labs * Transfuse if needed (4) Renal insufficiency: Code(s): N28.9 - Disorder of kidney and ureter, unspecified Status: Acute Assessment and Plan: * Seems to be resolved at this time * No baseline * Current BUN/Cr 17/0.90 * Trend labs * Could be an aspect of dehydration, or could be chronic * Trend labs (5) Leukocytosis: Code(s): D72.829 - Elevated white blood cell count, unspecified Status: Acute Assessment and Plan: * Resolved * WBC 13.8 upon admission * Currently 8.9 * Trend labs (6) Hypertension: Code(s): I10 - Essential (primary) hypertension Status: Acute Assessment and Plan: * Current BP 142/67 * Restarted lisinopril 5mg PO daily * trend BP * adjust medications as needed (7) Hypothyroidism: Code(s): E03.9 - Hypothyroidism, unspecified Status: Chronic Assessment and Plan: * Continue levothyroxine 50 mcg PO daily * TSH 8.780, T4 0.82, T3 0.69 (8) Coronary artery disease: Code(s): I25.10 - Atherosclerotic heart disease of [place] coronary artery without angina pectoris Status: Acute Assessment and Plan: * Probably not relevant at this time * Aspirin on hold for surgical procedure * Status post stent many years ago * No complaints of chest pain or shortness of breath * EKG shows left bundle branch block which is presumably an old finding * Troponin is undetectable. (9) Dementia: Code(s): F03.90 - Unspecified dementia without behavioral disturbance Status: Acute Assessment and Plan: * Continue donepezil PO HS and olanzapine 2.5 TID * Monitor for mood changes (10) Anxiety: Code(s): F41.9 - Anxiety disorder, unspecified Status: Acute Assessment and Plan: * Continue buspirone and paroxetine. (11) Hypomagnesemia: Code(s): E83.42 - Hypomagnesemia Status: Acute Assessment and Plan: * Mg 2.2 * Trend * Replace as needed Subjective Date/time seen: 09/29/21 16:12 Interval history: Date/Time: 09/25/21 16:45 Narrative: This is a pleasant 86-year-old female with history of coronary artery disease status
--- NOTE | 2021-09-29 09:20 | PM.IMPN ---
Progress Note: A&P Assessment and Plan (1) Closed fracture of right hip: Code(s): S72.001A - Fracture of unspecified part of neck of right femur, initial encounter for closed fracture Status: Acute Assessment and Plan: POD 3 mechanical fracture from ground level Hip/Pel xray found comminuted right intratrochanteric hip fracture Ortho consulted thank you Surgical service performed: Open reduction internal fixation right intertrochanteric hip fracture with Affiixus trochanteric nail device Acetamenophen IV scheduled Q6hr, Morphine, and oxycodone PRN Strict no weight bearing for [address] Finn to manage post-op care DVT determined by ortho (2) Fall from ground level: Code(s): W18.30XA - Fall on same level, unspecified, initial encounter Status: Acute Assessment and Plan: As above. (3) Macrocytic anemia: Code(s): D53.9 - Nutritional anemia, unspecified Status: Acute Assessment and Plan: H/H 8.4/25.4 Anemia labs: Iron 24, TIBC 390, % Sat 6, B12 >1000, TSH 8.780 On B12 and folic acid at home which was restarted Ferrous sulfate 324mg PO BID with food Trend labs Transfuse if needed (4) Renal insufficiency: Code(s): N28.9 - Disorder of kidney and ureter, unspecified Status: Acute Assessment and Plan: Seems to be resolved at this time No baseline Current BUN/Cr 17/0.90 Trend labs Could be an aspect of dehydration, or could be chronic Trend labs (5) Leukocytosis: Code(s): D72.829 - Elevated white blood cell count, unspecified Status: Acute Assessment and Plan: Resolved WBC 13.8 upon admission Currently 8.9 Trend labs (6) Hypertension: Code(s): I10 - Essential (primary) hypertension Status: Acute Assessment and Plan: Current BP 142/67 Restarted lisinopril 5mg PO daily trend BP adjust medications as needed (7) Hypothyroidism: Code(s): E03.9 - Hypothyroidism, unspecified Status: Chronic Assessment and Plan: Continue levothyroxine 50 mcg PO daily TSH 8.780, T4 0.82, T3 0.69 (8) Coronary artery disease: Code(s): I25.10 - Atherosclerotic heart disease of [place] coronary artery without angina pectoris Status: Acute Assessment and Plan: Probably not relevant at this time Aspirin on hold for surgical procedure Status post stent many years ago No complaints of chest pain or shortness of breath EKG shows left bundle branch block which is presumably an old finding Troponin is undetectable. (9) Dementia: Code(s): F03.90 - Unspecified dementia without behavioral disturbance Status: Acute Assessment and Plan: Continue donepezil PO HS and olanzapine 2.5 TID Monitor for mood changes (10) Anxiety: Code(s): F41.9 - Anxiety disorder, unspecified Status: Acute Assessment and Plan: Continue buspirone and paroxetine. (11) Hypomagnesemia: Code(s): E83.42 - Hypomagnesemia Status: Acute Assessment and Plan: Mg 2.2 Trend Replace as needed Subjective Date/time seen: 09/29/21 16:12 Interval history: Date/Time: 09/25/21 16:45 Narrative: This is a pleasant 86-year-old female with history of coronary artery disease status post CABG many years ago, hypertension, anxiety, hypothyroidism, and dementia who presented to the emergency department earlier today via private vehicle from home for evaluation of right hip pain after fall. The patient received morphine not long prior to my arrival to the room and she is somewhat somnolent and is not able to provide a good history, probably in some part due to her dementia. As such, some of the following information is obtained via a review of her electronic medical records as well as discussions with her daughter at bedside, with the patient's permission. Within the last 6 months o
[2021-09-29 11:30] LABS: Glucose Point of Care 98 mg/dl (65-105)
[2021-09-29] MEDS: CHOLECALCIFEROL 1,000 UNITS TABLET 2000 UNITS PO (13:28)
--- NOTE | 2021-09-29 15:24 | PM.PNORT ---
Progress Note: A&P Additional Plan Patient is now postoperative day number 3 after open reduction internal fixation of severely displaced comminuted 4 part right intertrochanteric hip fracture with trochanteric nail device. She seemed to doing much better today. She was awake and conversant. I had a little bit of difficulty understanding her because of her accent but her daughter could understand her better and she was communicating much more appropriately. She seems to understand that she did have a broken hip with that she is here recovering in the hospital. She denied any pain at rest. There is no drainage on the dressings. Her hemoglobin is fairly stable at 8.4. She had 1 unit of packed red blood cells before surgery for hemoglobin of 8. She is on Eliquis for DVT prophylaxis and on a baby aspirin for her prior stent. She was up to the commode earlier today and they will be getting her up to the chair again this afternoon using the 4 lift. Her daughter is with her constantly to keep her is oriented as possible. Subjective Subjective Date/Time Seen: 09/29/21 15:24 Objective Data Vital Signs Vital Signs: Vital Signs - 24 hr 09/28/21 16:00 09/28/21 18:48 09/28/21 19:18 Temperature 35.8 C L 36.6 C Pulse Rate 87 85 78 Respiratory Rate 16 20 Blood Pressure 95/41 L 112/48 L Pulse Oximetry 93 94 09/28/21 20:00 09/28/21 21:50 09/29/21 00:00 Temperature Pulse Rate 83 76 Respiratory Rate 20 Blood Pressure Pulse Oximetry 94 94 09/29/21 03:59 09/29/21 04:00 09/29/21 08:00 Temperature 36.3 C L Pulse Rate 84 88 79 Respiratory Rate 16 Blood Pressure 122/54 L Pulse Oximetry 93 09/29/21 10:39 09/29/21 12:00 09/29/21 15:10 Temperature 35.7 C L 35.9 C L Pulse Rate 72 95 97 Respiratory Rate 16 18 Blood Pressure 109/61 142/67 H Pulse Oximetry 72 L 97 Intake/Output Intake/Output: Intake & Output 09/26/21 09/27/21 09/28/21 09/29/21 23:59 23:59 23:59 23:59 Intake Total 1800 1520 340 440 Output Total 450 1900 1460 200 Balance 1350 -380 -1120 240 Meds/Results Medications: Active Medications Generic Name Dose Route Start Last Admin Trade Name Freq PRN Reason Stop Dose Admin Acetaminophen 650 mg 09/26/21 18:25 09/29/21 08:42 Acetaminophen 325 Mg Tablet PO 650 mg Q6HR ASHLEY Administration Al Hydrox/Mg Hydrox/Simethicone 30 ml 09/26/21 18:25 Mag Hydrox/Al Hydrox/Simeth 30 Ml Udc PO Q6H PRN Indigestion Apixaban 2.5 mg 09/27/21 09:00 09/29/21 08:42 Apixaban 2.5 Mg Tablet PO 10/31/21 21:01 2.5 mg Q12HR ASHLEY Administration Aspirin 81 mg 09/26/21 21:00 09/28/21 20:25 Aspirin 81 Mg Chewable Tablet PO 10/26/21 20:59 81 mg HS ASHLEY Administration Buspirone HCl 10 mg 09/26/21 09:00 09/29/21 13:29 Buspirone Hcl 10 Mg Tablet PO 10 mg TID ASHLEY Administration Donepezil HCl 5 mg 09/26/21 21:00 09/28/21 20:25 Donepezil Hcl 5 Mg Tablet PO 5 mg HS ASHLEY Administration Famotidine 20 mg 09/26/21 21:00 09/29/21 08:42 Famotidine 20 Mg Tablet PO 20 mg Q12HR ASHLEY Administration Hydroxyzine HCl 50 mg 09/26/21 18:25 Hydroxyzine Hcl 25 Mg Tablet PO Q4H PRN Itching Levothyroxine Sodium 50 mcg 09/26/21 06:30 09/29/21 06:06 Levothyroxine Sodium 50 Mcg Tablet PO 50 mcg DAILY@0630 ASHLEY Administration Lisinopril 5 mg 09/26/21 09:00 09/29/21 08:43 Lisinopril 5 Mg Tablet PO 5 mg DAILY ASHLEY Administration Morphine Sulfate 2 mg 09/26/21 18:25 Morphine Sulfate (*Crx) 2 Mg/Ml Inj IV PUSH Q3H PRN Pain Rated 7-10 Multivitamins Therapeutic 1 tablet 09/27/21 09:00 09/29/21 08:43 Multivitamins Therapeutic Tab (*Bkc) BY MOUTH 10/27/21 08:59 1 tablet DAILY ASHLEY Administration Naloxone HCl 0.1 mg 09/26/21 18:25 Naloxone Hcl 0.4 Mg/Ml Vial IV PUSH Q2M PRN Opiate Reversal Non-Formulary Medication 300 mg 09/29/21 09:00 [place]-3 Fatty Acids PO 10/29/21 08:59
[2021-09-29 16:32] LABS: Glucose Point of Care 110 mg/dl (65-105)
[2021-09-29] MEDS: FERROUS SULFATE 324 MG TABLET PO (16:51)
[2021-09-29] MEDS: SENNA/DOCUSATE SODIUM TABLET 2 TAB PO (16:52)
[2021-09-29] MEDS: oxyCODONE HCL (*CRX) 2.5 MG TAB IR PO (16:53)
[2021-09-29] MEDS: ASPIRIN 81 MG CHEWABLE TABLET PO (20:58)
[2021-09-29] MEDS: DONEPEZIL HCL 5 MG TABLET PO (20:58)
[2021-09-30] VITALS (7 sets, daily range): BP systolic 102–128; BP diastolic 48–56; PULSE 67–85; RESP 14–20; TEMP 35.9–36.9; O2SAT 95–98
[2021-09-30] MEDS: ACETAMINOPHEN 325 MG TABLET 650 MG PO ×4 (06:10→23:11)
[2021-09-30] MEDS: LEVOTHYROXINE SODIUM 50 MCG TABLET PO (06:10)
[2021-09-30 06:44] LABS: Basophils Percent Auto 0.5 % (0.2-1.2); Eosinophils Absolute Auto 0.3 K/mm3 (0-0.3); Eosinophils Percent Auto 3.8 % (0-4.4); Hematocrit 23.3 % (37.0-47.0); Hemoglobin 7.7 g/dL (12.0-15.0); Immature Granulocyte Absolute 0.03 K/mm3 (0.00-0.031); Immature Granulocyte Percent A 0.4 % (0-0.5); Lymphocytes Absolute Auto 1.18 K/mm3 (0.9-3.2); Lymphocytes Percent Auto 15.8 % (18.3-44.2); Mean Corpuscular Hemoglobin 32.9 pg (26-34); Mean Corpuscular Volume 99.6 fl (80-100); Mean Platelet Volume 8.8 fl (7.4-10.4); Monocytes Absolute Auto 0.7 K/mm3 (0.1-0.6); Monocytes Percent Auto 9.2 % (2.6-8.5); Neutrophils Absolute Auto 5.2 K/mm3 (1.3-6.7); Neutrophils Percent Auto 70.3 % (45.5-73.1); Platelet Count Result 291 k/mm3 (150-375); Red Blood Count 2.34 M/mm3 (4.2-5.4); Red Cell Distribution Width 14.3 % (11.5-14.5); White Blood Count 7.5 K/mm3 (4.5-10.0)
[2021-09-30 07:43] LABS: Alanine Aminotransferase 23 U/L (4-35); Albumin Level 2.5 g/dL (3.5-5.1); Alkaline Phosphatase 67 U/L (38-126); Anion Gap 2 mmol/L (8-16); Aspartate Amino Transferase 50 U/L (14-36); Bilirubin,Total 0.8 mg/dL (0.2-1.3); Blood Urea Nitrogen 16 mg/dL (7-17); Calcium 8.1 mg/dL (8.4-10.2); Carbon Dioxide 30 mmol/L (22-30); Chloride 106 mmol/L (98-107); Estimated Glomerular Filt Rate 60; Glucose 102 mg/dL (65-110); Potassium 3.8 mmol/L (3.4-5.0); Sodium 138 mmol/L (137-145)
--- NOTE | 2021-09-30 08:15 | P.PNIM_ITS ---
Progress Note: A&P Assessment and Plan (1) Closed fracture of right hip: Code(s): S72.001A - Fracture of unspecified part of neck of right femur, initial encounter for closed fracture Status: Acute Assessment and Plan: * POD 4 * mechanical fracture from ground level * Hip/Pel xray found comminuted right intratrochanteric hip fracture * Ortho consulted thank you * Surgical service performed: Open reduction internal fixation right intertrochanteric hip fracture with Affiixus trochanteric nail device * Acetamenophen IV scheduled Q6hr, Morphine, and oxycodone PRN * Strict no weight bearing for 6 weeks * Dr. Finn to manage post-op care * DVT determined by ortho (2) Fall from ground level: Code(s): W18.30XA - Fall on same level, unspecified, initial encounter Status: Acute Assessment and Plan: * As above. (3) Macrocytic anemia: Code(s): D53.9 - Nutritional anemia, unspecified Status: Acute Assessment and Plan: * H/H 7.7/23.3 on labs this am, repeat came back 8.8/27.2 * Anemia labs: Iron 24, TIBC 390, % Sat 6, B12 >1000, TSH 8.780 * On B12 and folic acid at home which was restarted * Ferrous sulfate 324mg PO BID with food * Trend labs * Transfuse if needed (4) Renal insufficiency: Code(s): N28.9 - Disorder of kidney and ureter, unspecified Status: Acute Assessment and Plan: * Seems to be resolved at this time * No baseline * Current BUN/Cr 16/0.9 * Trend labs * Could be an aspect of dehydration, or could be chronic * Trend labs (5) Leukocytosis: Code(s): D72.829 - Elevated white blood cell count, unspecified Status: Acute Assessment and Plan: * Resolved * WBC 13.8 upon admission * Currently 7.5 * Trend labs (6) Hypertension: Code(s): I10 - Essential (primary) hypertension Status: Acute Assessment and Plan: * Current BP 128/56 * Restarted lisinopril 5mg PO daily * trend BP * adjust medications as needed (7) Hypothyroidism: Code(s): E03.9 - Hypothyroidism, unspecified Status: Chronic Assessment and Plan: * Continue levothyroxine 50 mcg PO daily * TSH 8.780, T4 0.82, T3 0.69 (8) Coronary artery disease: Code(s): I25.10 - Atherosclerotic heart disease of [place] coronary artery without angina pectoris Status: Acute Assessment and Plan: * Probably not relevant at this time * Aspirin restarted * Status post stent many years ago * No complaints of chest pain or shortness of breath * EKG shows left bundle branch block which is presumably an old finding * Troponin is undetectable. (9) Dementia: Code(s): F03.90 - Unspecified dementia without behavioral disturbance Status: Acute Assessment and Plan: * Continue donepezil PO HS and olanzapine 2.5 TID * Monitor for mood changes (10) Anxiety: Code(s): F41.9 - Anxiety disorder, unspecified Status: Acute Assessment and Plan: * Continue buspirone and paroxetine. (11) Hypomagnesemia: Code(s): E83.42 - Hypomagnesemia Status: Acute Assessment and Plan: * Mg 2.0 * Trend * Replace as needed Subjective Date/time seen: 09/30/21 0815 Interval history: Date/Time: 09/25/21 16:45 Narrative: This is a pleasant 86-year-old female with history of coronary arter
--- NOTE | 2021-09-30 08:15 | PM.IMPN ---
Progress Note: A&P Assessment and Plan (1) Closed fracture of right hip: Code(s): S72.001A - Fracture of unspecified part of neck of right femur, initial encounter for closed fracture Status: Acute Assessment and Plan: POD 4 mechanical fracture from ground level Hip/Pel xray found comminuted right intratrochanteric hip fracture Ortho consulted thank you Surgical service performed: Open reduction internal fixation right intertrochanteric hip fracture with Affiixus trochanteric nail device Acetamenophen IV scheduled Q6hr, Morphine, and oxycodone PRN Strict no weight bearing for [address] Finn to manage post-op care DVT determined by ortho (2) Fall from ground level: Code(s): W18.30XA - Fall on same level, unspecified, initial encounter Status: Acute Assessment and Plan: As above. (3) Macrocytic anemia: Code(s): D53.9 - Nutritional anemia, unspecified Status: Acute Assessment and Plan: H/H 7.7/23.3 on labs this am, repeat came back 8.8/27.2 Anemia labs: Iron 24, TIBC 390, % Sat 6, B12 >1000, TSH 8.780 On B12 and folic acid at home which was restarted Ferrous sulfate 324mg PO BID with food Trend labs Transfuse if needed (4) Renal insufficiency: Code(s): N28.9 - Disorder of kidney and ureter, unspecified Status: Acute Assessment and Plan: Seems to be resolved at this time No baseline Current BUN/Cr 16/0.9 Trend labs Could be an aspect of dehydration, or could be chronic Trend labs (5) Leukocytosis: Code(s): D72.829 - Elevated white blood cell count, unspecified Status: Acute Assessment and Plan: Resolved WBC 13.8 upon admission Currently 7.5 Trend labs (6) Hypertension: Code(s): I10 - Essential (primary) hypertension Status: Acute Assessment and Plan: Current BP 128/56 Restarted lisinopril 5mg PO daily trend BP adjust medications as needed (7) Hypothyroidism: Code(s): E03.9 - Hypothyroidism, unspecified Status: Chronic Assessment and Plan: Continue levothyroxine 50 mcg PO daily TSH 8.780, T4 0.82, T3 0.69 (8) Coronary artery disease: Code(s): I25.10 - Atherosclerotic heart disease of [place] coronary artery without angina pectoris Status: Acute Assessment and Plan: Probably not relevant at this time Aspirin restarted Status post stent many years ago No complaints of chest pain or shortness of breath EKG shows left bundle branch block which is presumably an old finding Troponin is undetectable. (9) Dementia: Code(s): F03.90 - Unspecified dementia without behavioral disturbance Status: Acute Assessment and Plan: Continue donepezil PO HS and olanzapine 2.5 TID Monitor for mood changes (10) Anxiety: Code(s): F41.9 - Anxiety disorder, unspecified Status: Acute Assessment and Plan: Continue buspirone and paroxetine. (11) Hypomagnesemia: Code(s): E83.42 - Hypomagnesemia Status: Acute Assessment and Plan: Mg 2.0 Trend Replace as needed Subjective Date/time seen: 09/30/21 0815 Interval history: Date/Time: 09/25/21 16:45 Narrative: This is a pleasant 86-year-old female with history of coronary artery disease status post CABG many years ago, hypertension, anxiety, hypothyroidism, and dementia who presented to the emergency department earlier today via private vehicle from home for evaluation of right hip pain after fall. The patient received morphine not long prior to my arrival to the room and she is somewhat somnolent and is not able to provide a good history, probably in some part due to her dementia. As such, some of the following information is obtained via a review of her electronic medical records as well as discussions with her daughter at bedside, with the patient's permission. Within
--- NOTE | 2021-09-30 08:15 | PM.DS ---
DS: Admitting Diagnosis Discharge Date Date of service 09/30/2021 at 8:15 a.m. Admitting Diagnosis Closed fracture of the right hip after ground level fall DS: Discharge Diagnosis Discharge Diagnosis (1) Closed fracture of right hip: Code(s): S72.001A - Fracture of unspecified part of neck of right femur, initial encounter for closed fracture Status: Acute Assessment and Plan: POD 5 mechanical fracture from ground level Hip/Pel xray found comminuted right intratrochanteric hip fracture Ortho consulted thank you Surgical service performed: Open reduction internal fixation right intertrochanteric hip fracture with Affiixus trochanteric nail device Acetamenophen IV scheduled Q6hr, Morphine, and oxycodone PRN Strict no weight bearing for [address] Finn to manage post-op care DVT determined by ortho (2) Fall from ground level: Code(s): W18.30XA - Fall on same level, unspecified, initial encounter Status: Acute Assessment and Plan: As above. (3) Macrocytic anemia: Code(s): D53.9 - Nutritional anemia, unspecified Status: Acute Assessment and Plan: H/H 9.5/29.6 Anemia labs: Iron 24, TIBC 390, % Sat 6, B12 >1000, TSH 8.780 On B12 and folic acid at home which was restarted Ferrous sulfate 324mg PO BID with food Trend labs Transfuse if needed (4) Renal insufficiency: Code(s): N28.9 - Disorder of kidney and ureter, unspecified Status: Acute Assessment and Plan: Seems to be resolved at this time No baseline Current BUN/Cr 18/0.90 Trend labs Could be an aspect of dehydration, or could be chronic Trend labs (5) Leukocytosis: Code(s): D72.829 - Elevated white blood cell count, unspecified Status: Acute Assessment and Plan: Resolved WBC 13.8 upon admission Currently 8.2 Trend labs (6) Hypertension: Code(s): I10 - Essential (primary) hypertension Status: Acute Assessment and Plan: Current BP 145/44 Restarted lisinopril 5mg PO daily trend BP adjust medications as needed (7) Hypothyroidism: Code(s): E03.9 - Hypothyroidism, unspecified Status: Chronic Assessment and Plan: Continue levothyroxine 50 mcg PO daily TSH 8.780, T4 0.82, T3 0.69 (8) Coronary artery disease: Code(s): I25.10 - Atherosclerotic heart disease of [place] coronary artery without angina pectoris Status: Acute Assessment and Plan: Probably not relevant at this time Aspirin on hold for surgical procedure Status post stent many years ago No complaints of chest pain or shortness of breath EKG shows left bundle branch block which is presumably an old finding Troponin is undetectable. (9) Dementia: Code(s): F03.90 - Unspecified dementia without behavioral disturbance Status: Acute Assessment and Plan: Continue donepezil PO HS and olanzapine 2.5 TID Monitor for mood changes (10) Anxiety: Code(s): F41.9 - Anxiety disorder, unspecified Status: Acute Assessment and Plan: Continue buspirone and paroxetine. (11) Hypomagnesemia: Code(s): E83.42 - Hypomagnesemia Status: Acute Assessment and Plan: Mg 2.0 Trend Replace as needed DS: Summary Hospital Course Hospital Course: Patient is an 86-year-old female with a past medical history of coronary artery disease, hypertension, anxiety, hypothyroidism, and dementia who presented to the emergency room after a ground level fall at an Airbnb 3 hours away. When patient arrived patient was noted to have a right hip fracture. Hip x-ray showed comminuted right intertrochanteric hip fracture. Orthopedics was consulted and took patient to the OR for repair. Patient will be nonweightbearing for 6 weeks. Patient was also noted to have chronic anemia and anemia labs indicated she was iron deficient. Patient
--- NOTE | 2021-09-30 09:30 | PM.PNCARD ---
Progress Note: A&P Assessment and Plan (1) Coronary artery disease: Code(s): I25.10 - Atherosclerotic heart disease of [place] coronary artery without angina pectoris Status: Acute Assessment and Plan: remote history of CAD resulting in a stent about 10 years ago. She does not have a CABG history. There has been no worrisome anginal symptoms recently When talking to the patient's daughter. Continue outpatient regimen. Will discontinue telemetry (2) Preop cardiovascular exam: Code(s): Z01.810 - Encounter for preprocedural cardiovascular examination Status: Acute (3) Hypertension: Code(s): I10 - Essential (primary) hypertension Status: Acute Assessment and Plan: Blood pressure has been labile. (4) Hypothyroidism: Code(s): E03.9 - Hypothyroidism, unspecified Status: Chronic Assessment and Plan: on replacement. Per hospitalist (5) Closed fracture of right hip: Code(s): S72.001A - Fracture of unspecified part of neck of right femur, initial encounter for closed fracture Status: Acute Assessment and Plan: Will give a dose of IV furosemide 20 mg x 1 for her basilar crackles. (6) Dementia: Code(s): F03.90 - Unspecified dementia without behavioral disturbance Status: Acute Assessment and Plan: Continue Aricept (7) Carotid bruit: Code(s): R09.89 - Other specified symptoms and signs involving the circulatory and respiratory systems Status: Acute Assessment and Plan: No significant carotid disease bilaterally Okay for discharge from my perspective Subjective Date/time seen: 09/30/21 09:30 Interval history: 86-year-old status post fall and fracture. Surgery performed yesterday. Date of service 09/27/2021: Feels okay although hard of hearing. Denies any chest pain or shortness of breath. Date of service 09/28/2021: Very drowsy today. Daughter is at bedside. She is having some pain in her right hip. No chest pain or shortness of breath. Date of service 09/30/2021: Sitting up to chair. Following commands. No complaints today of chest pain or shortness of breath Review of Systems Review of Systems: All systems reviewed & are unremarkable except as noted in HPI and below Constitutional: Constitutional: Denies fatigue, Denies headache(s) and Denies weakness Eyes: Eyes: Denies blurry vision ENT: Denies Normal hearing present, Denies headache(s), Denies lip swelling and Denies neck pain Cardiovascular: Cardiovascular: Denies chest pain and Denies dyspnea Respiratory: Respiratory: Denies dyspnea Gastrointestinal: Gastrointestinal: Denies abdominal pain Genitourinary: Genitourinary: Denies hematuria and Denies flank pain Musculoskeletal: Musculoskeletal: Denies back pain and Denies neck pain Integumentary/Breasts: Skin/Breast: Denies dry skin Neurologic: Denies Normal hearing present, Reports confusion, Denies headache(s) and Denies weakness Psychiatric: Psychiatric: Denies anxiety and Reports confusion Endocrine: Endocrine: Denies fatigue Hematologic/Lymphatic: Hematologic/Lymphatic: Denies easy bleeding Allergic/Immunologic: Allergic/Immunologic: Denies GI upset with certain foods and Denies lip swelling Exam Narrative: Patient appears stated age. Const: General: comfortable, no acute distress and confusion Orientation/consciousness: confusion HENMT: General nose exam: Normal nares present Eyes: Sclera: sclerae normal Neck: Neck: supple and no JVD Carotids: bruit Other: bilateral carotidbruits are heard Chest: Chest palpation & inspection: normal inspection of the chest Other: no reproducible chest wall pain to palpation Resp: Auscultation: diminished lung sounds and other (Basilar crackles noted) Cardio: Rate: regular rate Rhythm: regular rhythm Heart sounds: Murmur heart sound present systolic GI: Auscultation: Hypoactive bowel sounds pre
[2021-09-30] MEDS: polyethylene glycoL 3350 17 GM POWD.PACK PO (09:38)
[2021-09-30] MEDS: lisinopriL 5 MG TABLET PO (09:38)
[2021-09-30] MEDS: CHOLECALCIFEROL 1,000 UNITS TABLET 2000 UNITS PO (09:39)
[2021-09-30] MEDS: busPIRone HCL 10 MG TABLET PO ×3 (09:39→17:08)
[2021-09-30] MEDS: MULTIVITAMINS THERAPEUTIC TAB (*BKC) 1 TABLET BY MOUTH (09:39)
[2021-09-30] MEDS: SENNA/DOCUSATE SODIUM TABLET 2 TAB PO ×2 (09:39→17:08)
[2021-09-30] MEDS: APIXABAN 2.5 MG TABLET PO ×2 (09:39→20:18)
[2021-09-30] MEDS: FERROUS SULFATE 324 MG TABLET PO ×2 (09:39→17:07)
[2021-09-30] MEDS: FAMOTIDINE 20 MG TABLET PO ×2 (09:39→20:18)
[2021-09-30] MEDS: OLANZapine 2.5 MG TABLET PO ×3 (09:39→17:07)
[2021-09-30] MEDS: PARoxetine 10 MG TABLET PO ×2 (09:39→17:07)
[2021-09-30] MEDS: oxyCODONE HCL (*CRX) 2.5 MG TAB IR PO ×2 (10:45→20:18)
[2021-09-30] MEDS: FUROSEMIDE INJ 40 MG/4 ML VIAL 20 MG IV PUSH (12:27)
--- NOTE | 2021-09-30 13:20 | PCPTNOTE ---
Attempted to see patient at 0920, patient eating breakfast. Attempted again at 1320, patient unable to keep her eyes open to participate with therapy. Patient performed ~10 ankle pumps with assistance; attempted to have patient complete quad sets and glute sets, however patient unable to stay awake to participate. Patient's family member present, and educated on the exercises (ankle pumps, quad sets, glute sets) that patient should continue with at home. RN notified. Will continue with PT POC as appropriate.
[2021-09-30 15:17] LABS: Hematocrit 27.2 % (37.0-47.0); Hemoglobin 8.8 g/dL (12.0-15.0)
[2021-09-30] MEDS: DONEPEZIL HCL 5 MG TABLET PO (20:18)
[2021-09-30] MEDS: ASPIRIN 81 MG CHEWABLE TABLET PO (20:18)
[2021-10-01] MEDS: LEVOTHYROXINE SODIUM 50 MCG TABLET PO (05:34)
[2021-10-01 05:41] VITALS: BP 145/44; PULSE 68; RESP 12; TEMP 36.5; O2SAT 98
[2021-10-01] MEDS: lisinopriL 5 MG TABLET PO (08:41)
[2021-10-01] MEDS: FAMOTIDINE 20 MG TABLET PO (08:41)
[2021-10-01] MEDS: SENNA/DOCUSATE SODIUM TABLET 2 TAB PO (08:41)
[2021-10-01] MEDS: busPIRone HCL 10 MG TABLET PO ×3 (08:41→17:05)
[2021-10-01] MEDS: CHOLECALCIFEROL 1,000 UNITS TABLET 2000 UNITS PO (08:41)
[2021-10-01] MEDS: OLANZapine 2.5 MG TABLET PO ×3 (08:41→17:05)
[2021-10-01] MEDS: polyethylene glycoL 3350 17 GM POWD.PACK PO (08:41)
[2021-10-01] MEDS: MULTIVITAMINS THERAPEUTIC TAB (*BKC) 1 TABLET BY MOUTH (08:41)
[2021-10-01] MEDS: APIXABAN 2.5 MG TABLET PO (08:42)
[2021-10-01] MEDS: PARoxetine 10 MG TABLET PO ×2 (08:42→17:05)
[2021-10-01] MEDS: FERROUS SULFATE 324 MG TABLET PO ×2 (08:42→17:05)
[2021-10-01 09:00] LABS: Basophils Absolute Auto 0.1 K/mm3 (0.0-0.1); Basophils Percent Auto 0.6 % (0.2-1.2); Eosinophils Absolute Auto 0.2 K/mm3 (0-0.3); Eosinophils Percent Auto 2.2 % (0-4.4); Hematocrit 29.6 % (37.0-47.0); Hemoglobin 9.5 g/dL (12.0-15.0); Immature Granulocyte Absolute 0.05 K/mm3 (0.00-0.031); Immature Granulocyte Percent A 0.6 % (0-0.5); Lymphocytes Absolute Auto 1.17 K/mm3 (0.9-3.2); Lymphocytes Percent Auto 14.3 % (18.3-44.2); Mean Corpuscular HGB Conc 32.1 g/dl (32-36); Mean Corpuscular Hemoglobin 32.9 pg (26-34); Mean Corpuscular Volume 102.4 fl (80-100); Mean Platelet Volume 8.7 fl (7.4-10.4); Monocytes Absolute Auto 0.7 K/mm3 (0.1-0.6); Monocytes Percent Auto 7.9 % (2.6-8.5); Neutrophils Absolute Auto 6.1 K/mm3 (1.3-6.7); Neutrophils Percent Auto 74.4 % (45.5-73.1); Platelet Count Result 350 k/mm3 (150-375); Red Blood Count 2.89 M/mm3 (4.2-5.4); Red Cell Distribution Width 14.2 % (11.5-14.5); White Blood Count 8.2 K/mm3 (4.5-10.0)
[2021-10-01 09:11] LABS: Alanine Aminotransferase 33 U/L (4-35); Albumin Level 3.3 g/dL (3.5-5.1); Alkaline Phosphatase 85 U/L (38-126); Anion Gap 7 mmol/L (8-16); Aspartate Amino Transferase 59 U/L (14-36); Bilirubin,Total 1.1 mg/dL (0.2-1.3); Blood Urea Nitrogen 18 mg/dL (7-17); Calcium 8.6 mg/dL (8.4-10.2); Carbon Dioxide 24 mmol/L (22-30); Chloride 104 mmol/L (98-107); Estimated Glomerular Filt Rate 60; Glucose 115 mg/dL (65-110); Potassium 3.7 mmol/L (3.4-5.0); Sodium 135 mmol/L (137-145)
--- NOTE | 2021-10-01 09:31 | PCOTNOTE ---
Spoke with blake this date re: discharge plans for patient. Daughter reports patient will go home with her and 24 hour family care. Daughter reports Raul lift and wheelchair have been delivered; shower bench, bedside commode, and Maxi Slide sheets pending. Daughter reports has assistance to use wheelchair to ascend/descend 1 step to assist patient into/out of home and car. Daughter anticipating discharge home soon; home healthcare followup pending doctor visit upon discharge.
[2021-10-01] MEDS: KETOROLAC 15 MG/ML VIAL (*BKC) IV PUSH (10:06)
[2021-10-01] MEDS: ACETAMINOPHEN 325 MG TABLET 650 MG PO ×2 (14:08→17:06)
== END 2021-10-01 18:00 | disposition home or self-care (01) | DRG 482 ==
LOC: ANHED 15:35 → ANH3MED 16:39
PROVIDERS: Orthopaedic Surgery; Physician Assistant; Physician Assistant Surgical; Admitting Provider Internal Medicine; Emergency Provider Emergency Medicine; Visit Provider Nurse Practitioner
PROC: 0QS604Z Reposition Right Upper Femur with Internal Fixation Device, Open Approach (ICD-10-PCS; CPT 27245; principal; 2021-09-26 15:30)
DX: S72.141A Displaced intertrochanteric fracture of right femur, initial encounter for closed fracture (principal); W01.0XXA Fall on same level from slipping, tripping and stumbling without subsequent striking against object, initial encounter; Y93.9 Activity, unspecified; Y92.009 Unspecified place in unspecified non-institutional (private) residence as the place of occurrence of the external cause; Y99.9 Unspecified external cause status; I25.10 Atherosclerotic heart disease of native coronary artery without angina pectoris; I10 Essential (primary) hypertension; F41.9 Anxiety disorder, unspecified; E03.9 Hypothyroidism, unspecified; F03.90 Unspecified dementia, unspecified severity, without behavioral disturbance, psychotic disturbance, mood disturbance, and anxiety; Z95.5 Presence of coronary angioplasty implant and graft; Z86.16 Personal history of COVID-19; D53.9 Nutritional anemia, unspecified; N28.9 Disorder of kidney and ureter, unspecified; D72.829 Elevated white blood cell count, unspecified; E83.42 Hypomagnesemia; D50.9 Iron deficiency anemia, unspecified; R09.89 Other specified symptoms and signs involving the circulatory and respiratory systems
CPT/HCPCS: 36415; 36430; 51702; 70450; 71045; 73502; 80048; 80053; 81001; 82306; 82607; 82948; 83540; 83550; 83735; 84439; 84443; 84480; 84484; 85014; 85018; 85025; 85027; 85610; 86850; 86900; 86901; 86920; 93005; 93880; 96374; 97110; 97162; 97166; 97530; 99285; A9270; C1713; C8929; J0131; J0690; J1885; J1940; J2270; J2405; J2704; J3010; J3370; J3475; J7030; J7050; J7120; P9016; Q9957

== ENCOUNTER 2021-10-20 18:26 | Emergency (ER) | payer MEDICARE, MEDICAID, SELFPAY ==
--- NOTE | ~2021-10-20 | XR_ITS ---
EXAMINATION: XR hip RT 2V w AP pelvis EXAM DATE: 10/20/2021 18:58 INDICATION: TECHNIQUE: Right hip frontal, 'frog leg' projections for interpretation. Frontal projection pelvis. Comparison is made to prior examination from 09/25/2021. FINDINGS: There is a recently internally reduced and fixed right hip comminuted intertrochanteric fra cture, gamma nail in expected position. Some evidence of reparative response. No other acute fracture s, pelvis is intact. IMPRESSION: Intact right hip gamma nail, subacute intertrochanteric fractures. Reviewed, dictated and finalized at location A. L RIVET MACHINE OPERATOR
--- NOTE | ~2021-10-20 | CT_ITS ---
EXAMINATION: CT brain wo con, CT cervical spine wo con EXAM DATE: 10/20/2021 19:10 INDICATION: Fall, head injury. TECHNIQUE: Spiral CT of the head was performed without contrast. Axial, coronal and sagittal images were reviewed. Spiral CT of the cervical spine was performed without contrast. Axial images were rev iewed. Coronal and sagittal reformatted images were also reviewed. The dose-length product (DLP) fo r this examination was 605.33 (accession [id number]), 146.49 (accession [id number]) mGy-cm. The exposure was tailored according to patient size, and iterative reconstruction (ASIR) was used as additional dose reduction technique. There is no prior study for comparison. FINDINGS: HEAD CT: Old nasal bone fractures, unchanged compared to prior study. There is no acute intraparenchy mal hemorrhage. No evidence of intraparenchymal brain mass lesion. No evidence of acute infarction. There is mild periventricular and subcortical hypodensity, nonspecific but probably related to small vessel ischemic disease. There is mild prominence of the sulci and ventricles related to cerebral atrophy. There is no mass effect or midline shift. There is no obstructive hydrocephalus suspected . There are no extra-axial collections. There are no acute calvarial fractures. Patient has had bi lateral ocular lens surgery. Soft tissue is unremarkable. The visualized sinuses and mastoid air ce lls are well aerated. CERVICAL CT: There is no evidence of acute cervical fracture. The odontoid process is intact. Pre-d ens space is normal. Prevertebral soft tissue is normal. There are no soft tissue abnormalities cris ntified. There is no disc space widening or traumatic vertebral body subluxation suspected. Moderat e to severe cervical spondylosis. A detailed level by level evaluation of spondylosis can be added a s addendum if requested. IMPRESSION: 1. No acute intracranial findings or cervical fracture. 2. Chronic findings. Reviewed, dictated and finalized at location A. PHONE QUOTATION CLERK IMPRESSION: 1. No acute intracranial findings or cervical fracture. 2. Chronic findings.
--- NOTE | ~2021-10-20 | XR_ITS ---
EXAMINATION: XR knee RT min 4V EXAM DATE: 10/20/2021 18:59 INDICATION: Initial encounter following injury, with pain of the right knee laterally. TECHNIQUE: Right knee frontal, crosstable lateral, orthogonal oblique projections for interpretation . There is no prior study for comparison. FINDINGS: No evidence osteochondral defect or joint body in the right knee joint. There are no acut e fractures or dislocations identified. There is no subcutaneous gas. The soft tissue is unremarkab le. There are no radiopaque foreign bodies. No joint effusion. IMPRESSION: 1. XR knee RT min 4V exam without acute osseous findings. Reviewed, dictated and finalized at location A. SPECIALIST
[2021-10-20 18:25] VITALS: BP 105/63; PULSE 84; RESP 16; TEMP 36.7; O2SAT 99
--- NOTE | 2021-10-20 19:23 | ED.FALL ---
HPI - Fall General Chief Complaint: Fall Stated Complaint: Fall, hip pain Time Seen by Provider: 10/20/21 18:30 Source: RN notes reviewed History of Present Illness HPI Narrative: Patient presents emergency department from [facility] via EMS for fall. Patient was trying to get up from her wheelchair to her bed and fell out of her wheelchair the patient does not walk at baseline and only stands to pivot she has a history of a recent fall with a right hip fracture patient was complaining of no pain initially but then started noticing some knee pain. Currently on evaluation patient denies any pain patient does have a history of dementia and is a poor historian patient denies any chest pain shortness of breath abdominal pain nausea vomiting Related Data Home Medications Medication Instructions Recorded Confirmed Adults Multivitamin 1 tablet BYMOUTH DAILY 09/25/21 09/25/21 alendronate-vitamin D3 50 mcg BYMOUTH DAILY 09/25/21 09/25/21 buspirone 10 mg PO TID 09/25/21 09/25/21 diphenhydramine HCl [ZzzQuil] 25 mg PO HS PRN 09/25/21 09/25/21 donepezil 5 mg PO HS 09/25/21 09/25/21 levothyroxine 50 mcg PO DAILY 09/25/21 09/25/21 lisinopril 5 mg PO DAILY 09/25/21 09/25/21 melatonin 15 mg PO HS 09/25/21 09/25/21 olanzapine 2.5 mg PO TID 09/25/21 09/25/21 omega-3 fatty acids 300 mg PO DAILY 09/25/21 09/25/21 paroxetine HCl 10 mg PO BIDWMEAL 09/25/21 09/25/21 vitamin Y54-yexzm acid 1,000 mcg BYMOUTH DAILY 09/25/21 09/25/21 Allergies Allergy/AdvReac Type Severity Reaction Status Date / Time No Known Allergies Allergy Verified 09/25/21 18:34 Review of Systems Review of Systems: Gen.: Denies fevers or chills ENT: Denies facial pain Respiratory: Denies shortness of breath CV: Denies chest pain GI: Denies abdominal pain nausea, emesis Musculoskeletal: See HPI Neuro: Denies n loss of consciousness Skin: Denies rash Except as documented, all other systems reviewed and negative [facility] Past Medical History Medical History Alzheimer disease Anxiety Coronary artery disease Status post stent x1 many years ago. COVID-19 (07/2020) Dementia Diverticulitis Hyperlipidemia Hypertension Hypothyroidism Surgical History Surgical History History of cardiac catheterization History of heart artery stent History of hysterectomy History of partial colectomy Related to diverticulitis. Family History Family History Mother Breast cancer Father Heart disease Hypertension Congestive heart failure Social History Social History Social History: The patient lives with her daughter Rama in [place]. She is originally from [place]. 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 She has 3 children, 2 sons and 1 daughter. Lifelong nonsmoker. No alcohol or illicit substance abuse. Her daughter Rama Sood is her healthcare power of trade mark attorney. Code status: Full code. Exam Narrative: APPEARANCE: No acute distress, nontoxic, resting in bed EYES: EOMI, PERRL HEENT: Normocephalic, atraumatic, no facial tenderness RESPIRATORY: No respiratory distress Clear to auscultation bilaterally with no rhonchi wheezing or rales. CARDIOVASCULAR: Regular rate and rhythm without murmurs rubs or gallops. ABDOMINAL: Soft, nontender, nondistended, no rebound or guarding MUSCULOSKELETAl: Moves all extremities. No clubbing, cyanosis or edema. No tenderness of the right hip knee or ankle dorsalis pedis pulse 2+ bilaterally NEURO: Awake and alert x 1. Following commands, speech normal, no focal deficits SKIN:: Warm, dry. No rashes lesions or abrasions PSYCHIATRIC: Normal affect/mood, Course Course Emergency Course: Discussed with patient results of workup and diagno
--- NOTE | 2021-10-20 19:38 | PC.NURSE ---
report called to [facility]. family updated as to transport back to senior living
--- NOTE | 2021-10-20 19:56 | PC.NURSE ---
made contact with [facility] to transfer pt to [facility] in [place]. [facility] declined. made contact with [facility] accepted with an eta of [id number]
== END 2021-10-20 21:30 ==
PROVIDERS: Emergency Provider Emergency Medicine
DX: S80.01XA Contusion of right knee, initial encounter (principal); G30.9 Alzheimer's disease, unspecified; F02.80 Dementia in other diseases classified elsewhere, unspecified severity, without behavioral disturbance, psychotic disturbance, mood disturbance, and anxiety; I25.10 Atherosclerotic heart disease of native coronary artery without angina pectoris; E78.5 Hyperlipidemia, unspecified; I10 Essential (primary) hypertension; E03.9 Hypothyroidism, unspecified; Z86.16 Personal history of COVID-19; Z95.5 Presence of coronary angioplasty implant and graft; Z90.49 Acquired absence of other specified parts of digestive tract; W05.0XXA Fall from non-moving wheelchair, initial encounter
CPT/HCPCS: 70450; 72125; 73502; 73564; 99284

== ENCOUNTER 2021-11-20 15:17 | Emergency (ER) | payer MEDICARE, MEDICAID, SELFPAY ==
--- NOTE | ~2021-11-20 | XR_ITS ---
EXAMINATION: XR hip LT 2V w AP pelvis INDICATION: Left hip pain after fall TECHNIQUE: AP view the pelvis and two views of the left hip are obtained. COMPARISON: 10/20/2021 FINDINGS: Bone alignment is normal. No acute fracture is identified. There is antegrade intramedullar y maximilian and interlocking intratrochanteric screw fixation of the right femur. Phleboliths are noted in the pelvis. There is calcified atherosclerosis. IMPRESSION: 1. No acute osseous abnormality. Reviewed, dictated and finalized at location F. ER FLAP TUBER MACHINE OPERATOR
--- NOTE | ~2021-11-20 | XR_ITS ---
EXAMINATION: XR chest 1V portable DATE: 11/20/2021 16:29 INDICATION: Weakness. TECHNIQUE: A single frontal view of the chest was obtained. COMPARISON: Chest single view 09/25/2021 FINDINGS: There is mild scarring at the lung apices. No pleural effusion or pneumothorax. The heart s ize is normal. Surgical clips in the right upper quadrant are likely from cholecystectomy. IMPRESSION: 1. Stable mild scarring at the lung apices. Reviewed, dictated and finalized at location B. R TESTING SUPERVISOR
--- NOTE | ~2021-11-20 | CT_ITS ---
EXAMINATION: CT brain wo con, CT cervical spine wo con EXAM DATE: 11/20/2021 16:41 INDICATION: Head injury . Dementia. TECHNIQUE: Spiral CT of the head was performed without contrast. Axial, coronal and sagittal images were reviewed. Spiral CT of the cervical spine was performed without contrast. Axial images were rev iewed. Coronal and sagittal reformatted images were also reviewed. The dose-length product (DLP) fo r this examination was 605.33 (accession [id number]), 115.74 (accession [id number]) mGy-cm. The exposure was tailored according to patient size, and iterative reconstruction (ASIR) was used as additional dose reduction technique. Comparison is made to prior examination from 10/20/2021. FINDINGS: HEAD CT: There is no acute intraparenchymal hemorrhage. No evidence of intraparenchymal brain mass l esion. No evidence of acute infarction. There is mild periventricular and subcortical hypodensity, n onspecific but probably related to small vessel ischemic disease. There is mild prominence of the s ulci and ventricles related to cerebral atrophy. There is no mass effect or midline shift. There i s no obstructive hydrocephalus suspected. There are no extra-axial collections. There are no acute calvarial fractures. Patient has had bilateral ocular lens surgery. Soft tissue is unremarkable. T he visualized sinuses and mastoid air cells are well aerated. CERVICAL CT: There is severe left C4-5 facet arthropathy and right C1-2 lateral mass arthropathy. Mil d cervical levoscoliosis. Overall moderate cervical disc disease. There is no evidence of acute cervi olga fracture. The odontoid process is intact. Pre-dens space is normal. Prevertebral soft tissue i s normal. There are no soft tissue abnormalities identified. There is no disc space widening or tra umatic vertebral body subluxation suspected. A detailed level by level evaluation of spondylosis can be added as addendum if requested. IMPRESSION: 1. No acute intracranial findings or cervical fracture. 2. Chronic findings unchanged. Reviewed, dictated and finalized at location A. EM OPERATOR IMPRESSION: 1. No acute intracranial findings or cervical fracture. 2. Chronic findings unchanged.
--- NOTE | ~2021-11-20 | CT_ITS ---
EXAMINATION: CT abdomen pelvis wo con DATE: 11/20/2021 17:35 INDICATION: Left lower quadrant pain TECHNIQUE: Computed tomography (CT) of the abdomen and pelvis was performed without intravenous contr ast. The dose-length product (DLP) was 325.95 mGy-cm. Automated exposure control and iterative recons truction technique were employed. COMPARISON: None FINDINGS: Minimal dependent atelectasis is present in the lung bases. The heart size is normal. Calci fied coronary artery atherosclerosis is noted. There is also calcification of the mitral annulus. The re is a small sliding hiatal hernia. There is a 1.6 cm cyst of the left hepatic lobe. The gallbladder is surgically absent. The spleen, pancreas, and adrenal glands are normal. The left kidney is unrema rkable. Cysts of the right kidney measure up to 2.1 cm. No pathologically enlarged abdominal or pelvi c lymph nodes are identified. There is calcified atherosclerosis of the aorta and many of the other a rteries. There is no free intraperitoneal gas or evidence of bowel obstruction. Colonic diverticulosi s is present without evidence of diverticulitis. A circumscribed area of calcification is present in the left lower quadrant which may reflect fat necrosis. There is antegrade intramedullary maximilian and int erlocking intratrochanteric screw fixation of the right femur. IMPRESSION: 1. No CT correlate for the patient's symptoms. Reviewed, dictated and finalized at location F. [employer]
[2021-11-20 15:22] VITALS: BP 92/48; PULSE 78; RESP 16; RESP 18; TEMP 36.8; O2SAT 94
--- NOTE | 2021-11-20 15:34 | ECG_ITS ---
Measurements Intervals [place] Rate: 101 P: 53 WI: 192 QRS: -5 QRSD: 113 T: 151 QT: 372 QTc: 482 Interpretive Statements SINUS TACHYCARDIA LEFT BUNDLE BRANCH BLOCK BASELINE ARTIFACT- I, II, III, AVR, AVL, AVF, V4-V5 ABNORMAL ECG Electronically Signed On 11-20-2021 15:52:08 POCKET GRINDER OPERATOR by Zack Tang D.O.
[2021-11-20 16:02] LABS: Basophils Percent Auto 0.4 % (0.2-1.2); Eosinophils Absolute Auto 0.1 K/mm3 (0-0.3); Eosinophils Percent Auto 1.3 % (0-4.4); Hematocrit 36.7 % (37.0-47.0); Hemoglobin 11.7 g/dL (12.0-15.0); Immature Granulocyte Absolute 0.03 K/mm3 (0.00-0.031); Immature Granulocyte Percent A 0.4 % (0-0.5); Lymphocytes Absolute Auto 1.26 K/mm3 (0.9-3.2); Lymphocytes Percent Auto 16.3 % (18.3-44.2); Mean Corpuscular HGB Conc 31.9 g/dl (32-36); Mean Corpuscular Hemoglobin 32.1 pg (26-34); Mean Corpuscular Volume 100.8 fl (80-100); Mean Platelet Volume 9.2 fl (7.4-10.4); Monocytes Absolute Auto 0.7 K/mm3 (0.1-0.6); Monocytes Percent Auto 8.5 % (2.6-8.5); Neutrophils Absolute Auto 5.7 K/mm3 (1.3-6.7); Neutrophils Percent Auto 73.1 % (45.5-73.1); Platelet Count Result 383 k/mm3 (150-375); Red Blood Count 3.64 M/mm3 (4.2-5.4); Red Cell Distribution Width 13.1 % (11.5-14.5); White Blood Count 7.8 K/mm3 (4.5-10.0)
[2021-11-20 16:11] LABS: Add Urine Microscopic? YES; Alanine Aminotransferase 18 U/L (4-35); Alkaline Phosphatase 168 U/L (38-126); Anion Gap 11 mmol/L (8-16); Appearance Urine Cloudy (Clear); Aspartate Amino Transferase 47 U/L (14-36); Bacteria Urine Trace /hpf; Bilirubin Urine Negative (Negative); Bilirubin,Total 0.5 mg/dL (0.2-1.3); Blood Urea Nitrogen 17 mg/dL (7-17); Calcium 9.4 mg/dL (8.4-10.2); Carbon Dioxide 25 mmol/L (22-30); Chloride 103 mmol/L (98-107); Color Urine Amber (Yellow); Estimated CRCL calculation 21 ml/min; Estimated Glomerular Filt Rate 43; Glucose 119 mg/dL (65-110); Glucose Urine UA Negative (Negative); Ketones Urine Trace mg/dL (Negative); Leukocyte Esterase Ur 2+ LEU/UL (Negative); Mucus Urine Rare /lpf; Nitrate Urine Negative (Negative); Potassium 4.5 mmol/L (3.4-5.0); Protein Urine Negative (Negative); Sodium 139 mmol/L (137-145); Specific Grav Ur 1.017 (1.001-1.035); Squamous Epithelial Cell Urine Rare /hpf (Few); Urobilinogen Urine Negative mg/dL (<2.0); WBC Urine >75 /hpf
[2021-11-20 16:15] LABS: Blood Urine Negative (Negative)
[2021-11-20] MEDS: SODIUM CHLORIDE 0.9% IV 1,000 ML 999 ML IV CONT (16:49)
--- NOTE | 2021-11-20 17:13 | ED.FALL ---
HPI - Fall General Chief Complaint: Fall Stated Complaint: unwitnessed fall Time Seen by Provider: 11/20/21 15:59 Source: patient and RN notes reviewed Mode of arrival: EMS Limitations: dementia History of Present Illness HPI Narrative: This is an 86 year old female who presents from [facility] for evaluation of an unwitnessed fall. Patient was found on floor after falling out of bed per EMS. Patient is oriented to person . She does not remember falling. She is poor historian. Nursing notes patient is on eliquis. Related Data Home Medications Medication Instructions Recorded Confirmed Adults Multivitamin 1 tablet BYMOUTH DAILY 09/25/21 09/25/21 alendronate-vitamin D3 50 mcg BYMOUTH DAILY 09/25/21 09/25/21 buspirone 10 mg PO TID 09/25/21 09/25/21 diphenhydramine HCl [ZzzQuil] 25 mg PO HS PRN 09/25/21 09/25/21 donepezil 5 mg PO HS 09/25/21 09/25/21 levothyroxine 50 mcg PO DAILY 09/25/21 09/25/21 lisinopril 5 mg PO DAILY 09/25/21 09/25/21 melatonin 15 mg PO HS 09/25/21 09/25/21 olanzapine 2.5 mg PO TID 09/25/21 09/25/21 omega-3 fatty acids 300 mg PO DAILY 09/25/21 09/25/21 paroxetine HCl 10 mg PO BIDWMEAL 09/25/21 09/25/21 vitamin R89-ogkti acid 1,000 mcg BYMOUTH DAILY 09/25/21 09/25/21 Allergies Allergy/AdvReac Type Severity Reaction Status Date / Time No Known Allergies Allergy Verified 09/25/21 18:34 Review of Systems Review of Systems: ROS unobtainable: Yes other (dementia) [facility] Past Medical History Medical History Alzheimer disease Anxiety Coronary artery disease Status post stent x1 many years ago. COVID-19 (07/2020) Dementia Diverticulitis Hyperlipidemia Hypertension Hypothyroidism Surgical History Surgical History History of cardiac catheterization History of heart artery stent History of hysterectomy History of partial colectomy Related to diverticulitis. Family History Family History Mother Breast cancer Father Heart disease Hypertension Congestive heart failure Social History Social History Social History: The patient lives with her daughter Rama in [place]. She is originally from [place]. 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 She has 3 children, 2 sons and 1 daughter. Lifelong nonsmoker. No alcohol or illicit substance abuse. Her daughter Rama Sood is her healthcare power of assistant attorney general. Code status: Full code. Exam Const: General: no acute distress and alert HENMT: Head: normocephalic and atraumatic Face and sinus: normal facial exam, sinuses nontender and face symmetric Mouth: Yes Normal oral and palatal mucosa present, Yes lip normal and Yes tongue normal Eyes: Pupils: Equal, round and reactive pupils present EOM: EOMs intact bilaterally Resp: Effort & Inspection: normal respiratory effort and no retractions Auscultation: clear to auscultation bilaterally Cardio: Rate: regular rate Rhythm: regular rhythm Heart sounds: no murmurs GI: GI Palp: Yes Soft to palpation, No Tenderness to palpation present (GI), No Guarding due to palpation present (GI) and No Rigid due to palpation Auscultation: normal bowel sounds Skin: General skin exam: normal color Rashes: no rashes Neuro: General: moves all extremities and CN's II-XI intact bilaterally Psych: Mental Status: mental status grossly normal Affect: normal affect Course Reevaluation(s) Reevaluation #1: Nursing staff states patient is at baseline. She was found to have UTI. She was started on antibiotics. She will be discharged. Date: 11/20/21 Time: 18:36 Vital Signs Vital signs: Vital Signs Temperature 98.2 F 11/20/21 15:22 Pulse Rate 78 11/20/21 15:22 Respiratory
[2021-11-20 17:46] VITALS: BP 120/55; PULSE 75; RESP 18; O2SAT 98
[2021-11-20 18:00] LABS: Creatine Kinase 97 U/L (30-135)
[2021-11-20 18:19] VITALS: BP 132/53; PULSE 96; RESP 18; O2SAT 97
--- NOTE | 2021-11-20 18:49 | PC.NURSE ---
report called to destini marks at [facility] in [place].
--- NOTE | 2021-11-20 18:53 | PC.NURSE ---
made contact with [facility] to transfer pt to [facility] in [place]. pichardo eta [phone]
--- NOTE | 2021-11-20 19:00 | PC.NURSE ---
Assuming care of pt.
[2021-11-20 19:48] VITALS: BP 116/55; PULSE 57; RESP 14; O2SAT 100
--- NOTE | 2021-11-20 20:03 | PC.NURSE ---
called [facility] at 1930 to request transport. Accepted and arrived at 1955 cancelled [facility] at 2003
== END 2021-11-20 20:03 ==
PROVIDERS: Emergency Medicine; Emergency Provider General Practice
DX: Z04.3 Encounter for examination and observation following other accident (principal); N39.0 Urinary tract infection, site not specified; G30.9 Alzheimer's disease, unspecified; F02.80 Dementia in other diseases classified elsewhere, unspecified severity, without behavioral disturbance, psychotic disturbance, mood disturbance, and anxiety; I25.10 Atherosclerotic heart disease of native coronary artery without angina pectoris; E78.5 Hyperlipidemia, unspecified; I10 Essential (primary) hypertension; E03.9 Hypothyroidism, unspecified; Z86.16 Personal history of COVID-19; Z95.5 Presence of coronary angioplasty implant and graft; Z90.49 Acquired absence of other specified parts of digestive tract; W06.XXXA Fall from bed, initial encounter; R00.0 Tachycardia, unspecified; I44.7 Left bundle-branch block, unspecified
CPT/HCPCS: 36415; 51701; 70450; 71045; 72125; 73502; 74176; 80053; 81001; 82550; 85025; 87077; 87086; 87186; 93005; 96361; 96365; 99284; J0696; J7030

== ENCOUNTER 2022-02-08 19:32 | Observation (INO) | payer MEDICARE, MEDICAID, SELFPAY ==
--- NOTE | ~2022-02-08 | XR_ITS ---
EXAMINATION: XR hip RT 2V w AP pelvis DATE: 02/08/2022 21:04 INDICATION: Pelvis injury. TECHNIQUE: An anteroposterior view of the pelvis and 2 views of right hip were obtained. COMPARISON: CT abdomen and pelvis 11/20/2021 FINDINGS: There is an old healed fracture of proximal right femur with internal fixation with antegra de intramedullary maximilian, distal interlocking screw, and femoral head/neck screw. There are acute fractu res of left superior and inferior pubic rami. There is moderate osteoarthritis of the hips. There is mild lumbar spondylosis. IMPRESSION: 1. Acute fractures of left superior and inferior pubic rami. 2. Healed fracture of proximal right femur with internal fixation. 3. Moderate osteoarthritis of the hips. Reviewed, dictated and finalized at location A.
--- NOTE | ~2022-02-08 | XR_ITS ---
EXAMINATION: XR chest 1V portable DATE: 02/08/2022 21:57 INDICATION: Coronary artery disease. TECHNIQUE: A single frontal view of the chest was obtained. COMPARISON: Chest single view 11/20/2021, CT abdomen and pelvis 11/20/2021 FINDINGS: The patient is rotated to her left. There is no pneumonia, pleural effusion, or pneumothora x. The heart size is normal. Surgical clips in the right upper quadrant are likely from cholecystecto my. IMPRESSION: 1. No acute cardiopulmonary disease. Reviewed, dictated and finalized at location A.
[2022-02-08 20:11] VITALS: BP 126/56; PULSE 91; RESP 18; TEMP 37; O2SAT 92
--- NOTE | 2022-02-08 20:51 | ED.FALL ---
HPI - Fall General Chief Complaint: Fall Stated Complaint: fall Time Seen by Provider: 02/08/22 20:51 Source: patient Mode of arrival: ambulatory Limitations: dementia History of Present Illness HPI Narrative: The patient is an 86-year-old female with a history of hypertension, dementia, recent right hip surgery, presenting for evaluation following a fall. Patient solidifies a history as the patient has advanced dementia and is only oriented to person at baseline. The patient's daughter states that she witnessed the patient fall yesterday after she tripped while walking. Patient has a shuffling gait has a history of frequent falls. The patient's daughter was next to her when this occurred and the patient did not hit her head but she did land onto her right hip. No loss of consciousness. Patient has been reporting bilateral hip pain today. Patient typically is able to ambulate with the use of a walker or independently with short distances, but has had difficulty today secondary to pain. History otherwise limited secondary to dementia. Patient's daughter states otherwise she is acting normally, no recent fever, no nausea or vomiting, no reported abdominal pain. No diarrhea. Pt with right hip surgery due to fracture in September [address] Mcneal. Has not been following with him otherwise. Related Data Home Medications Medication Instructions Recorded Confirmed alendronate-vitamin D3 50 mcg BYMOUTH DAILY 09/25/21 02/09/22 Ca carb-Ca gluc-Mg ox-Mg gluco 1 tablet PO DAILY 02/08/22 02/09/22 [Calcium Magnesium] buspirone 10 mg PO TID 02/08/22 02/09/22 donepezil 10 mg TID 02/08/22 02/09/22 ferrous sulfate [FeroSul] 325 mg PO DAILY 02/08/22 02/09/22 levothyroxine [Synthroid] 200 mcg PO QAM 02/08/22 02/09/22 olanzapine 2.5 mg PO TID 02/08/22 02/09/22 paroxetine HCl 10 mg PO BID 02/08/22 02/09/22 vitamin B complex [B 1 tablet PO DAILY 02/08/22 02/08/22 Complex-Vitamin B12] Aspir-81 81 mg PO DAILY 02/09/22 02/09/22 Allergies Allergy/AdvReac Type Severity Reaction Status Date / Time No Known Allergies Allergy Verified 03/31/22 21:33 Review of Systems Review of Systems: ROS unobtainable: Yes unobtainable due to medical condition (Dementia) [facility] Past Medical History Medical History Alzheimer disease Anxiety Coronary artery disease Status post stent x1 many years ago. COVID-19 (07/2020) Dementia Diverticulitis Hyperlipidemia Hypertension Hypothyroidism Surgical History Surgical History History of cardiac catheterization History of heart artery stent History of hysterectomy History of partial colectomy Related to diverticulitis. Family History Family History (Updated 02/08/22 @ 23:57 by Yang Santiago RN) Mother Breast cancer Father Congestive heart failure Heart disease Hypertension Sibling Dementia Social History Social History Social History: The patient lives with her daughter Rama in [place]. She is originally from [place]. 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 She has 3 children, 2 sons and 1 daughter. Lifelong nonsmoker. No alcohol or illicit substance abuse. Her daughter Rama Sood is her healthcare power of insurance attorney. Code status: Full code. Smoking status: Never smoker Alcohol intake: never Substance use: never Spiritual care concerns: No Exam Narrative: GENERAL: Awake, alert, not conversant HEAD: Normocephalic, atraumatic. EYES: PERRLA and EOMI. ENT: Nares clear, no rhinorrhea or epistaxis. Mucous membranes moist. NECK: Supple. CHEST: No respiratory distress, breathing even and non labored HEART: Regular rate, sinus rhythm ABDOMEN:Non distended, non tender EXTREMITIES: Legs are held in a contracted posi
[2022-02-08 22:01] VITALS: BP 120/58; PULSE 66; RESP 16; O2SAT 94
--- NOTE | 2022-02-08 22:11 | PM.IMHP ---
H&P: HPI History of Present Illness Date/Time: 02/08/22 22:11 Chief Complaint: Fall. Narrative: This is an 86-year-old female with past medical history significant for Alzheimer's dementia, hypothyroidism, iron deficiency anemia, recent hip fracture status post open reduction and internal fixation. Patient lives at home with her daughter who is her main caregiver. Patient had a fall the day before while she was ambulating of note uses a walker and has been undergoing home health care with physical therapy, there was no loss of consciousness. History has been obtained upon reviewing medical records and and daughter who is at bedside as patient has advanced dementia can not really give much history. Preliminary workup was significant for fracture of the left superior and inferior pubic rami. Patient has not been able to get up in the last day or so according to daughter and decided to bring her to the emergency room. Patient has been admitted for further evaluation, management and treatment. Review of Systems Review of Systems: ROS unobtainable: Yes unobtainable due to mental status (Advanced dementia.) [facility] Past Medical History Medical History Alzheimer disease Anxiety Coronary artery disease Status post stent x1 many years ago. COVID-19 (07/2020) Dementia Diverticulitis Hyperlipidemia Hypertension Hypothyroidism Surgical History Surgical History History of cardiac catheterization History of heart artery stent History of hysterectomy History of partial colectomy Related to diverticulitis. Family History Family History (Updated 02/08/22 @ 23:57 by Yang Santiago RN) Mother Breast cancer Father Congestive heart failure Heart disease Hypertension Sibling Dementia Social History Social History Social History: The patient lives with her daughter Rama in [place]. She is originally from [place]. 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 She has 3 children, 2 sons and 1 daughter. Lifelong nonsmoker. No alcohol or illicit substance abuse. Her daughter Rama Sood is her healthcare power of insurance attorney. Code status: Full code. Smoking status: Never smoker Alcohol intake: never Substance use: never Spiritual care concerns: No Meds Home Medications and Allergies Home Medications Medication Instructions Recorded Confirmed Type alendronate-vitamin D3 50 mcg BYMOUTH DAILY 09/25/21 02/09/22 History Ca carb-Ca gluc-Mg ox-Mg gluco 1 tablet PO DAILY 02/08/22 02/09/22 History [Calcium Magnesium] buspirone 10 mg PO TID 02/08/22 02/09/22 History donepezil 10 mg TID 02/08/22 02/09/22 History ferrous sulfate [FeroSul] 325 mg PO DAILY 02/08/22 02/09/22 History levothyroxine [Synthroid] 200 mcg PO QAM 02/08/22 02/09/22 History olanzapine 2.5 mg PO TID 02/08/22 02/09/22 History paroxetine HCl 10 mg PO BID 02/08/22 02/09/22 History vitamin B complex [B 1 tablet PO DAILY 02/08/22 02/08/22 History Complex-Vitamin B12] Aspir-81 81 mg PO DAILY 02/09/22 02/09/22 History Allergies Allergy/AdvReac Type Severity Reaction Status Date / Time No Known Allergies Allergy Verified 02/08/22 21:33 Vital Signs Vital Signs - 24 hr 02/08/22 20:11 Temperature 98.6 F Pulse Rate 91 Respiratory Rate 18 Blood Pressure 126/56 L Pulse Oximetry 92 Exam Narrative: Patient is laying in a stretcher. Const: General: cooperative, comfortable, no acute distress, well developed and tired appearing Nutritional Appearance: average body habitus Orientation/consciousness: oriented to person Other: Dementia HENMT: Head: normal to inspection, normocephalic and atraumatic Ears: hearing grossly normal bilaterally General nose exam: Normal external nose present Fa
[2022-02-08 22:30] VITALS: BP 125/62; PULSE 65; RESP 15; O2SAT 100
[2022-02-08] MEDS: KETOROLAC 15 MG/ML VIAL (*BKC) IV PUSH (22:32)
[2022-02-08 23:00] VITALS: BP 119/60; PULSE 67; RESP 14; O2SAT 95
[2022-02-08 23:20] LABS: Basophils Percent Auto 0.4 % (0.2-1.2); Eosinophils Absolute Auto 0.1 K/mm3 (0-0.3); Eosinophils Percent Auto 0.7 % (0-4.4); Hemoglobin 10.3 g/dL (12.0-15.0); Immature Granulocyte Absolute 0.05 K/mm3 (0.00-0.031); Immature Granulocyte Percent A 0.5 % (0-0.5); Lymphocytes Absolute Auto 1.01 K/mm3 (0.9-3.2); Lymphocytes Percent Auto 11.1 % (18.3-44.2); Mean Corpuscular HGB Conc 31.2 g/dl (32-36); Mean Corpuscular Hemoglobin 31.5 pg (26-34); Mean Corpuscular Volume 100.9 fl (80-100); Mean Platelet Volume 9.5 fl (7.4-10.4); Monocytes Percent Auto 11.4 % (2.6-8.5); Neutrophils Absolute Auto 6.9 K/mm3 (1.3-6.7); Neutrophils Percent Auto 75.9 % (45.5-73.1); Platelet Count Result 274 k/mm3 (150-375); Red Blood Count 3.27 M/mm3 (4.2-5.4); Red Cell Distribution Width 14.9 % (11.5-14.5); White Blood Count 9.1 K/mm3 (4.5-10.0)
[2022-02-08 23:23] LABS: Add Urine Microscopic? YES; Appearance Urine Clear (Clear); Bilirubin Urine Negative (Negative); Blood Urine Negative (Negative); Color Urine Yellow (Yellow); Glucose Urine UA Negative (Negative); Ketones Urine Negative (Negative); Leukocyte Esterase Ur Negative LEU/UL (Negative); Mucus Urine Rare /lpf; Nitrate Urine Negative (Negative); Protein Urine Negative (Negative); Specific Grav Ur 1.025 (1.001-1.035); Squamous Epithelial Cell Urine Occasional /hpf (Few); Urobilinogen Urine Negative mg/dL (<2.0); WBC Urine 0-3 /hpf
[2022-02-08 23:46] VITALS: BMI 24.4
--- NOTE | 2022-02-08 23:53 | ADMGEN ---
This patient, Liz Smith, was admitted to Medical Room 345-01. Patient/family oriented to hospital policies and general routines including ID bracelet, bed and alarms, visiting hours, pain management, procedures, bathroom and other care routines, personal items, smoking policy, room service/diet, and visiting hours. Information on how to activate the Rapid Response Team has been discussed. Patient/Family are encouraged to report perceived risks to care and to ask questions if they do not understand what they are told or what they should do.
[2022-02-09 00:26] LABS: Anion Gap 5 mmol/L (8-16); Blood Urea Nitrogen 15 mg/dL (7-17); Calcium 8.4 mg/dL (8.4-10.2); Carbon Dioxide 27 mmol/L (22-30); Chloride 105 mmol/L (98-107); Estimated Glomerular Filt Rate 60; Glucose 123 mg/dL (65-110); Potassium 4.1 mmol/L (3.4-5.0); Sodium 137 mmol/L (137-145)
[2022-02-09 00:43] VITALS: BP 124/51; PULSE 82; RESP 17; TEMP 36.6; O2SAT 91
[2022-02-09 05:41] VITALS: BP 118/50; PULSE 82; RESP 15; TEMP 37; O2SAT 98
[2022-02-09] MEDS: VITAMIN B COMPLEX CAPSULE 1 CAP PO (10:01)
[2022-02-09] MEDS: CYANOCOBALAMIN 1,000 MCG TABLET 1000 MCG PO (10:02)
[2022-02-09] MEDS: PARoxetine 10 MG TABLET PO ×2 (10:02→17:11)
[2022-02-09] MEDS: LEVOTHYROXINE SODIUM 100 MCG TABLET 200 MCG PO (10:02)
[2022-02-09] MEDS: ASPIRIN 81 MG CHEWABLE TABLET PO (10:03)
[2022-02-09] MEDS: FERROUS SULFATE 324 MG TABLET PO (10:03)
[2022-02-09] MEDS: OLANZapine 2.5 MG TABLET PO ×3 (10:03→17:11)
[2022-02-09] MEDS: busPIRone HCL 10 MG TABLET PO ×3 (10:03→17:11)
[2022-02-09 10:05] LABS: Folic Acid > 20.0 ng/mL (2.76->20); Vitamin B12 > 1000.0 pg/mL (239-931)
[2022-02-09 12:23] VITALS: BP 135/67; PULSE 89; RESP 16; TEMP 36.7; O2SAT 95
--- NOTE | 2022-02-09 12:55 | PM.CNOR ---
Assessment and Plan Assessment and plan (1) Multiple pelvic fractures: Code(s): S32.82XA - Multiple fractures of pelvis without disruption of pelvic ring, initial encounter for closed fracture <DELMIS Yanes - Last Filed: 02/09/22 15:25> Status: Acute <DELMIS Yanes - Last Filed: 02/09/22 15:25> Assessment and Plan: Pleasant elderly 86 y/o female with dementia. Fractures of left superior and inferior pubic rami after falling from standing height. May be treated conservatively. Will take 4-8 weeks to heal. History of femur fracture with IM nail in September 2021. Patient lives at home with her daughter who takes care of her with home health already in place. Patient will likely have trouble ambulating due to pain. She may bear weight as tolerated with a walker. Pain control with Tylenol. Typically patient would be discharged to SNF/Rehab. Patient's daughter expresses competence and okay with her going home. Okay for discharge home with home health. Follow up in office in 4 weeks with xrays. Thank you for the consult. <DELMIS Yanes - Last Filed: 02/09/22 15:25> Additional Plan Patient seen and examined. Discussed above care plan. Radiographic images reviewed personally. Agree with conservative care plan. <Diomedes Perez MD - Last Filed: 02/09/22 15:44> History of Present Illness HPI Consult date: 02/09/22 <DELMIS Yanes - Last Filed: 02/09/22 15:25> 02/09/22 <Diomedes Perez MD - Last Filed: 02/09/22 15:44> Chief complaint: Pelvic Fractures <DELMIS Yanes - Last Filed: 02/09/22 15:25> Narrative: Patient resting comfortably in bed. Complains of pain at her pelvis. No other complaints. <DELMIS Yanes - Last Filed: 02/09/22 15:25> Review of Systems Review of Systems: ROS unobtainable: Yes unobtainable due to mental status <DELMIS Yanes - Last Filed: 02/09/22 15:25> PMFSH Past Medical History Medical History: Medical History Alzheimer disease Anxiety Coronary artery disease Status post stent x1 many years ago. COVID-19 (07/2020) Dementia Diverticulitis Hyperlipidemia Hypertension Hypothyroidism <DELMIS Yanes - Last Filed: 02/09/22 15:25> Surgical History Surgical History: Surgical History History of cardiac catheterization History of heart artery stent History of hysterectomy History of partial colectomy Related to diverticulitis. <DELMIS Yanes - Last Filed: 02/09/22 15:25> Family History Family History: Family History Mother Breast cancer Father Congestive heart failure Heart disease Hypertension Sibling Dementia <DELMIS Yanes - Last Filed: 02/09/22 15:25> Social History Social History: Social History Social History: The patient lives with her daughter Rama in [place]. She is originally from [place]. 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 She has 3 children, 2 sons and 1 daughter. Lifelong nonsmoker. No alcohol or illicit substance abuse. Her daughter Rama Sood is her healthcare power of commercial litigation attorney. Code status: Full code. Smoking status: Never smoker Alcohol intake: never Substance use: never Spiritual care concerns: No <DELMIS Yanes - Last Filed: 02/09/22 15:25> Meds Home Medications and Allergies Home medications: Home Medications Medication Instructions Recorded Confirmed Type alendronate-vitamin D3 50 mcg BYMOUTH DAILY 09/25/21 02/09/22 History Ca carb-Ca gluc-Mg ox-Mg gluco 1 tablet PO DAILY 02/08/22 02/09/22 History [C
--- NOTE | 2022-02-09 13:57 | PM.IMPN ---
Progress Note: A&P Assessment and Plan (1) Multiple pelvic fractures: Code(s): S32.82XA - Multiple fractures of pelvis without disruption of pelvic ring, initial encounter for closed fracture <Lula Torres PA-C - Last Filed: 02/09/22 16:01> Status: Acute <Lula Torres PA-C - Last Filed: 02/09/22 16:01> Assessment and Plan: Mechanical fall onto right hip 2 days ago, unable to ambulate since that time. Hip/pelvis XR showed acute fractures of left superior and inferior pubic rami. He healed fracture proximal right femur with internal fixation. Orthopedics advised this will take 4-8 weeks to heal. Patient will likely have trouble ambulating due to pain. She may bear weight as tolerated with a walker, pain control with Tylenol. All patient would typically be discharged to rehab facility, patient's daughter has expressed desire for patient to return home with her. Orthopedics has okayed discharge to home with home health. Will follow-up in 4 weeks with x-rays. -Orthopedic consult obtained, non-operative outpatient management -PT/OT per orthopedics -Likely D/C tomorrow. -Pain control per orthopedics. <uLla Torres PA-C - Last Filed: 02/09/22 16:01> (2) Alzheimer disease: Code(s): G30.9 - Alzheimer's disease, unspecified; F02.80 - Dementia in other diseases classified elsewhere without behavioral disturbance <Lula Torres PA-C - Last Filed: 02/09/22 16:01> Status: Acute <Lula Torres PA-C - Last Filed: 02/09/22 16:01> Assessment and Plan: Continue home donepezil. <Lula Torres PA-C - Last Filed: 02/09/22 16:01> (3) Macrocytic anemia: Code(s): D53.9 - Nutritional anemia, unspecified <Lula Torres PA-C - Last Filed: 02/09/22 16:01> Status: Acute <Lula Torres PA-C - Last Filed: 02/09/22 16:01> Assessment and Plan: Patient has a macrocytic anemia, is on B vitamin complex, as well as iron at home. B12 levels were >1000, and Folate > 20. - Continue daily B multivitamin and Folate. <Lula Torres PA-C - Last Filed: 02/09/22 16:01> (4) Hypothyroidism: Code(s): E03.9 - Hypothyroidism, unspecified <Lula Torres PA-C - Last Filed: 02/09/22 16:01> Status: Chronic <Lula Torres PA-C - Last Filed: 02/09/22 16:01> Assessment and Plan: Continue home levothyroxine, will check TSH here. <Lula Torres PA-C - Last Filed: 02/09/22 16:01> (5) Closed fracture of right hip: Code(s): S72.001A - Fracture of unspecified part of neck of right femur, initial encounter for closed fracture <Lula Torres PA-C - Last Filed: 02/09/22 16:01> Status: Acute <Lula Torres PA-C - Last Filed: 02/09/22 16:01> Assessment and Plan: S/p Right hip ORIF 09/2021. Orthopedics aware and consulting. <Lula Torres PA-C - Last Filed: 02/09/22 16:01> (6) DVT prophylaxis: Code(s): Z29.9 - Encounter for prophylactic measures, unspecified <Lula Torres PA-C - Last Filed: 02/09/22 16:01> Status: Acute <Lula Torres PA-C - Last Filed: 02/09/22 16:01> Assessment and Plan: SCDs. Patient is on aspirin at home. <Lula Torres PA-C - Last Filed: 02/09/22 16:01> Subjective Date/time seen: 02/09/22 13:57 Ms. Smith is a pleasant 86 y/o female with Hx of Alzheimer's, hypertension, dementia, right hip ORIF 09/2021, who presented yesterday to our ER after a mechanical fall 2 days ago onto her right hip. She reports her pain is well controlled. Patient remains bedbound today. She denies chest pain, nausea, vomiting, breathing difficulty. She is a poor historian and daughter was not in the room with her today. <Lula Torres PA-C - Last Filed: 02/09/22 16:01> Review of Systems Review of Systems: All systems reviewed & are unremarkable except as noted in HPI and below <Lula Torres PA-C - L
[2022-02-09 15:20] VITALS: BP 119/62; PULSE 88; RESP 16; TEMP 36.4; O2SAT 97
[2022-02-09] MEDS: ONDANSETRON INJ 4 MG/2 ML VIAL IV PUSH (17:12)
[2022-02-09 20:16] VITALS: BP 112/54; PULSE 107; RESP 16; TEMP 36.1; O2SAT 94
[2022-02-10 04:30] VITALS: BP 135/68; PULSE 86; RESP 16; TEMP 36.3; O2SAT 94
[2022-02-10] MEDS: LEVOTHYROXINE SODIUM 100 MCG TABLET 200 MCG PO (06:11)
[2022-02-10 07:26] LABS: Hematocrit 33.1 % (37.0-47.0); Hemoglobin 10.8 g/dL (12.0-15.0); Mean Corpuscular HGB Conc 32.6 g/dl (32-36); Mean Corpuscular Hemoglobin 31.7 pg (26-34); Mean Corpuscular Volume 97.1 fl (80-100); Platelet Count Result 269 k/mm3 (150-375); Red Blood Count 3.41 M/mm3 (4.2-5.4); Red Cell Distribution Width 14.7 % (11.5-14.5)
[2022-02-10 07:28] LABS: Alanine Aminotransferase 19 U/L (4-35); Albumin Level 3.6 g/dL (3.5-5.1); Alkaline Phosphatase 149 U/L (38-126); Anion Gap 11 mmol/L (8-16); Aspartate Amino Transferase 41 U/L (14-36); Bilirubin,Total 1.1 mg/dL (0.2-1.3); Blood Urea Nitrogen 16 mg/dL (7-17); Calcium 8.3 mg/dL (8.4-10.2); Carbon Dioxide 22 mmol/L (22-30); Chloride 105 mmol/L (98-107); Estimated Glomerular Filt Rate > 60; Glucose 98 mg/dL (65-110); Potassium 4.8 mmol/L (3.4-5.0); Sodium 138 mmol/L (137-145)
[2022-02-10] MEDS: FERROUS SULFATE 324 MG TABLET PO (08:31)
[2022-02-10] MEDS: VITAMIN B COMPLEX CAPSULE 1 CAP PO (08:31)
[2022-02-10] MEDS: PARoxetine 10 MG TABLET PO ×2 (08:31→17:18)
[2022-02-10] MEDS: ASPIRIN 81 MG CHEWABLE TABLET PO (08:31)
[2022-02-10] MEDS: OLANZapine 2.5 MG TABLET PO ×3 (08:31→17:19)
[2022-02-10] MEDS: busPIRone HCL 10 MG TABLET PO ×3 (08:32→17:19)
[2022-02-10] MEDS: DONEPEZIL HCL 10 MG TABLET BY MOUTH (08:32)
--- NOTE | 2022-02-10 08:38 | PCPTNOTE ---
Attempted therapy session, Pt just received breakfast. Will attempt again.
--- NOTE | 2022-02-10 10:13 | PM.DS ---
DS: Admitting Diagnosis Discharge Date 02/10/2022 Admitting Diagnosis Pelvic Fractures DS: Discharge Diagnosis Discharge Diagnosis (1) Multiple pelvic fractures: Code(s): S32.82XA - Multiple fractures of pelvis without disruption of pelvic ring, initial encounter for closed fracture Status: Acute Assessment and Plan: Mechanical fall onto right hip 2 days ago, unable to ambulate since that time. Hip/pelvis XR showed acute fractures of left superior and inferior pubic rami. Orthopedics advised this will take 4-8 weeks to heal, and proceed with conservative management. Patient will likely have trouble ambulating due to pain. She may bear weight as tolerated with a walker, pain control with Tylenol. Orthopedics and PT both evaluated the patient and recommended discharge to rehab facility, however, patient's daughter has expressed desire for patient to return home with her. Orthopedics has okayed discharge to home with home health. Will follow-up in 4 with orthopedics weeks with x-rays. Orthopedics advised no additional anticoagulation for home. (2) Alzheimer disease: Code(s): G30.9 - Alzheimer's disease, unspecified; F02.80 - Dementia in other diseases classified elsewhere without behavioral disturbance Status: Acute Assessment and Plan: Continue with home donepezil at discharge. (3) Macrocytic anemia: Code(s): D53.9 - Nutritional anemia, unspecified Status: Acute Assessment and Plan: Patient has a macrocytic anemia, is on B vitamin complex, as well as iron at home. B12 levels were >1000, and Folate > 20. Continue daily B multivitamin and Folate at home upon discharge. (4) Hypothyroidism: Code(s): E03.9 - Hypothyroidism, unspecified Status: Chronic Assessment and Plan: Continue home levothyroxine, follow up with PCP in 2-4 weeks. (5) DVT prophylaxis: Code(s): Z29.9 - Encounter for prophylactic measures, unspecified Status: Acute Assessment and Plan: Patient utilzied SCDs in hospital. She will continue her aspirin at home, per orthopedics. (6) Hyperthyroidism: Code(s): E05.90 - Thyrotoxicosis, unspecified without thyrotoxic crisis or storm Status: Acute Assessment and Plan: TSH low at 1.00, reflex T4 was 2.53. She takes 200mcg daily of levothyroxine. Patient is currently asymptomic, will discharge with f/u to PCP for monitoring of TSH/ T4. Ambulatory TSH/ T4 in 2 weeks. DS: Summary Hospital Course Hospital Course: See above for Hospital Course. Patient recovering well and discharged to home. Time Spent with Patient Time attestation: Please see above for hospital course. Total time spent providing and/or coordinating discharge services: 31 minutes. Exam Narrative: Patient was sleeping during my exam today. Const: General: comfortable and no acute distress HENMT: Head: normal to inspection, normocephalic and atraumatic Ears: hearing grossly normal bilaterally General nose exam: Normal external nose present Face and sinus: normal facial exam Mouth: Yes Normal oral and palatal mucosa present Eyes: General: appearance normal, both eyes and all related structures Alignment and Position: alignment normal Sclera: sclerae normal Pupils: Equal, round and reactive pupils present EOM: EOMs intact bilaterally Neck: Neck: normal visual inspection, full ROM, no lymphadenopathy, supple and no JVD Thyroid: thyroid normal Lymphatic: no lymphadenopathy noted Resp: Effort & Inspection: normal respiratory effort and able to speak in complete sentences Auscultation: clear to auscultation bilaterally, no crackles, no rales, no rhonchi and no wheezes Cardio: Jugular venous distension: no JVD Rate: regular rate Rhythm: regular rhythm Heart sounds: S1 normal heart sound present and S2 normal heart sound present Other: distal pulses equal and in tact GI: GI Palp: Yes Soft to palpation, No Tende
[2022-02-10 11:20] LABS: Free T4 Free Thyroxine 2.53 ng/mL (0.78-2.19)
[2022-02-10 17:04] VITALS: BP 129/67; PULSE 68; RESP 14; TEMP 35.8; O2SAT 92
== END 2022-02-10 18:21 | disposition home health service (06) ==
LOC: ANHED 21:56 → ANH3MED 22:38
PROVIDERS: Student in an Organized Health Care Education/Training Program; Admitting Provider Internal Medicine; Emergency Provider Emergency Medicine; Visit Provider Family Medicine
DX: S32.592A Other specified fracture of left pubis, initial encounter for closed fracture (principal); I10 Essential (primary) hypertension; I25.10 Atherosclerotic heart disease of native coronary artery without angina pectoris; D53.9 Nutritional anemia, unspecified; E78.5 Hyperlipidemia, unspecified; E05.90 Thyrotoxicosis, unspecified without thyrotoxic crisis or storm; K57.30 Diverticulosis of large intestine without perforation or abscess without bleeding; G30.9 Alzheimer's disease, unspecified; F02.80 Dementia in other diseases classified elsewhere, unspecified severity, without behavioral disturbance, psychotic disturbance, mood disturbance, and anxiety; F41.9 Anxiety disorder, unspecified; W19.XXXA Unspecified fall, initial encounter; Z95.5 Presence of coronary angioplasty implant and graft; Z90.49 Acquired absence of other specified parts of digestive tract
CPT/HCPCS: 36415; 51701; 71045; 73502; 80048; 80053; 81001; 82607; 82746; 84439; 84443; 85025; 85027; 96374; 96375; 97116; 97161; 97167; 97530; 99285; A9270; G0378; J1885; J2405

== ENCOUNTER 2022-03-05 10:45 | Outpatient (CLI) | payer MEDICARE, MEDICAID, SELFPAY ==
--- NOTE | ~2022-03-05 | XR_ITS ---
XR pelvis 1-2V DATE: 03/05/2022 11:06 INDICATION: Multiple pelvic fractures TECHNIQUE: AP view COMPARISON: 02/08/2022 pelvis and right hip FINDINGS: There is evidence of a healing left superior and inferior pubic ramus fractures. Osteopenia. Bilateral hip osteoarthritis. Compression screw and intramedullary nail of proximal right femur for old intertrochanteric hip fract ure. Degenerative disc disease of the lumbar spine. IMPRESSION: Healing left superior and inferior pubic ramus fractures Reviewed, dictated and finalized at location A.
== END 2022-03-05 10:46 | disposition home or self-care (01) ==
PROVIDERS: PCP Family Medicine; Visit Provider Orthopaedic Surgery
DX: S32.82XD Multiple fractures of pelvis without disruption of pelvic ring, subsequent encounter for fracture with routine healing (principal); X58.XXXD Exposure to other specified factors, subsequent encounter
CPT/HCPCS: 72170